=== PATIENT | female | born 1990 | race Caucasian/White ===

== ENCOUNTER → 2017-09-26 | Outpatient (CLI) | payer SELFPAY ==
[~2017-09-26] MED LIST: Cyclobenzaprine5 MG PO; Norco 5-325 Ta1 EACH PO
[2017-09-26 17:58] LABS: BASOPHILS ABSOLUTE AUTO 0.04 K/mm3 (0.00-0.23); BASOPHILS PERCENT AUTO 0 % (0-2); EOSINOPHILS ABSOLUTE AUTO 0.17 K/mm3 (0.00-0.68); EOSINOPHILS PERCENT AUTO 2 % (0-6); Hematocrit 40.8 % (33.0-51.0); Hemoglobin 13.9 g/dL (11.5-16.0); IMMATURE GRAN ABSOLUTE AUTO 0.04 K/mm3 (0.00-0.10); IMMATURE GRAN PERCENT AUTO 0 % (0-1); LYMPHOCYTES PERCENT AUTO 26 % (21-46); MONOCYTES ABSOLUTE AUTO 1.18 K/mm3 (0.16-1.47); MONOCYTES PERCENT AUTO 11 % (4-13); Mean Corpuscular HGB 29.3 pg (26.0-34.0); Mean Corpuscular HGB Conc 34.1 g/dL (31.5-36.5); Mean Corpuscular Volume 86 fL (80-100); Mean Platelet Volume 8.7 fL (9.1-12.4); NEUTROPHILS ABSOLUTE AUTO 6.78 K/mm3 (1.96-9.15); NEUTROPHILS PERCENT AUTO 61 % (41-73); Platelet Count 315 K/mm3 (150-400); RDW Coefficient Variation 13.2 % (11.7-14.2); RDW Standard Deviation 40.9 fL (35.1-46.3); Red Blood Cell Count 4.74 M/mm3 (3.80-5.20); White Blood Cell Count 11.11 K/mm3 (4.00-11.30)
[2017-09-26 18:21] LABS: Alanine Aminotransfer (ALT/SGP 32 U/L (12-78); Albumin, Blood 3.8 g/dL (3.4-5.0); Alk Phos 89 U/L (40-126); Anion Gap 9 mmol/L (6-16); Aspartate Aminotrans (AST/SGOT 20 U/L (12-37); Bilirubin, Total 0.3 mg/dL (0.1-1.0); Blood Urea Nitrogen 15 mg/dL (8-24); Bun/Creatinine Ratio 16.7 (12.0-20.0); CO2, Blood 27 mmol/L (21-32); Chloride, Blood 103 mmol/L (98-108); Globulin, Blood 3.8 g/dL (2.2-4.0); Glomerular Filtration Rate >60 (60-); Glucose, Blood 101 mg/dL (70-99); Sodium, Blood 139 mmol/L (136-145); Thyroid Stimulating Hormone 1.558 uIU/mL (0.360-4.800); Total Protein, Blood 7.6 g/dL (6.4-8.2)
== END ==
LOC: LAB SHORT 17:55 → LAB EV 17:55
PROVIDERS: Physician Assistant Medical
DX: R53.83 Other fatigue (principal)
CPT/HCPCS: 80053; 84443; 85025

== ENCOUNTER → 2018-10-16 | Outpatient (CLI) | payer OTHER ==
[~2018-10-16] MED LIST changes: +PRENATAL TABLE1 EAC2 PO
[2018-10-16 09:28] LABS: Protein, Urine Quantitative 5.7 mg/dL (0.0-11.9)
[2018-10-16 09:57] LABS: Creatinine Urine 59.8 mg/dL (27.00-270.00)
== END | disposition home or self-care (01) ==
LOC: LAB SHORT 08:26 → LAB 08:26
PROVIDERS: Obstetrics & Gynecology
DX: O13.9 Gestational [pregnancy-induced] hypertension without significant proteinuria, unspecified trimester (principal)
CPT/HCPCS: 81050; 82575; 84156

== ENCOUNTER → 2018-11-25 | Outpatient (CLI) | payer OTHER | END | disposition home or self-care (01) | LOC: LAB SHORT 15:48 → LAB 15:48 | DX: Z34.00 Encounter for supervision of normal first pregnancy, unspecified trimester (principal) | CPT/HCPCS: 87081; 87653 ==

== ENCOUNTER 2018-12-06 14:40 | Emergency (ER) | payer OTHER ==
[~2018-12-06] VITALS: Ht 157.5 cm; Wt 141.1 kg
[~2018-12-06 14:40] MED LIST changes: -PRENATAL TABLE1 EAC2 PO
== END 2018-12-06 16:54 | disposition home or self-care (01) ==
LOC: ER 14:40
DX: O9A.213 Injury, poisoning and certain other consequences of external causes complicating pregnancy, third trimester (principal); S39.91XA Unspecified injury of abdomen, initial encounter; Z3A.36 36 weeks gestation of pregnancy; V43.52XA Car driver injured in collision with other type car in traffic accident, initial encounter
CPT/HCPCS: 76816; 99284-25

== ENCOUNTER 2018-12-11 20:03 | Inpatient (IN) | payer OTHER ==
[~2018-12-11] VITALS: Ht 157.5 cm; Wt 138.2 kg
[2018-12-11 22:50] LABS: BASOPHILS ABSOLUTE AUTO 0.02 K/mm3 (0.00-0.23); BASOPHILS PERCENT AUTO 0 % (0-2); EOSINOPHILS ABSOLUTE AUTO 0.04 K/mm3 (0.00-0.68); EOSINOPHILS PERCENT AUTO 0 % (0-6); Hematocrit 35.8 % (33.0-51.0); Hemoglobin 11.6 g/dL (11.5-16.0); IMMATURE GRAN ABSOLUTE AUTO 0.07 K/mm3 (0.00-0.10); IMMATURE GRAN PERCENT AUTO 1 % (0-1); LYMPHOCYTES ABSOLUTE AUTO 1.54 K/mm3 (0.84-5.20); LYMPHOCYTES PERCENT AUTO 12 % (21-46); MONOCYTES ABSOLUTE AUTO 1.04 K/mm3 (0.16-1.47); MONOCYTES PERCENT AUTO 8 % (4-13); Mean Corpuscular HGB 27.2 pg (26.0-34.0); Mean Corpuscular HGB Conc 32.4 g/dL (31.5-36.5); NEUTROPHILS ABSOLUTE AUTO 10.57 K/mm3 (1.96-9.15); NEUTROPHILS PERCENT AUTO 80 % (41-73); Platelet Count 328 K/mm3 (150-400); RDW Coefficient Variation 14.4 % (11.7-14.2); RDW Standard Deviation 43.8 fL (35.1-46.3); Red Blood Cell Count 4.26 M/mm3 (3.80-5.20); White Blood Cell Count 13.28 K/mm3 (4.00-11.30)
[2018-12-11 22:51] LABS: Mean Corpuscular Volume 84 fL (80-100)
[2018-12-11] MEDS ORDERED: PRENATAL TABLE1 EAC2 PO (23:10)
[2018-12-11 23:54] LABS: Alanine Aminotransfer (ALT/SGP 20 U/L (12-78); Albumin, Blood 2.6 g/dL (3.4-5.0); Albumin/Globulin Ratio 0.6 (0.8-1.8); Alk Phos 154 U/L (50-136); Anion Gap 12 mmol/L (6-16); Aspartate Aminotrans (AST/SGOT 25 U/L (12-37); Bilirubin, Total 0.1 mg/dL (0.1-1.0); Blood Urea Nitrogen 6 mg/dL (8-24); Bun/Creatinine Ratio 10.4 (12.0-20.0); CO2, Blood 21 mmol/L (21-32); Calcium, Blood 8.7 mg/dL (8.5-10.1); Chloride, Blood 108 mmol/L (98-108); Creatinine, Blood 0.58 mg/dL (0.40-1.00); Globulin, Blood 4.1 g/dL (2.2-4.0); Glomerular Filtration Rate >60 (60-); Glucose, Blood 137 mg/dL (70-99); Potassium, Blood 3.5 mmol/L (3.5-5.5); Sodium, Blood 141 mmol/L (136-145); Total Protein, Blood 6.7 g/dL (6.4-8.2)
== END 2018-12-12 14:04 | disposition home or self-care (01) | DRG 833 ==
LOC: OBS 20:03 → BC 20:03 → OBS 20:21 → BC 20:26
PROVIDERS: ADMIT Obstetrics & Gynecology
PROC: 3E0P7VZ Introduction of Hormone into Female Reproductive, Via Natural or Artificial Opening (ICD-10-PCS; principal; 2018-12-11)
DX: O13.3 Gestational [pregnancy-induced] hypertension without significant proteinuria, third trimester (principal); Z3A.38 38 weeks gestation of pregnancy
CPT/HCPCS: 36415; 80053; 85025; J0290; J2590; J7120

== ENCOUNTER 2018-12-16 19:59 | Inpatient (IN) | payer OTHER ==
[~2018-12-16] VITALS: Ht 157.5 cm; Wt 143.0 kg
[~2018-12-16 19:59] MED LIST changes: +PRENATAL TABLE1 EAC2 PO
[2018-12-16 20:27] LABS: BASOPHILS ABSOLUTE AUTO 0.01 K/mm3 (0.00-0.23); BASOPHILS PERCENT AUTO 0 % (0-2); EOSINOPHILS ABSOLUTE AUTO 0.07 K/mm3 (0.00-0.68); EOSINOPHILS PERCENT AUTO 1 % (0-6); Hemoglobin 10.6 g/dL (11.5-16.0); IMMATURE GRAN ABSOLUTE AUTO 0.04 K/mm3 (0.00-0.10); IMMATURE GRAN PERCENT AUTO 0 % (0-1); LYMPHOCYTES PERCENT AUTO 15 % (21-46); MONOCYTES ABSOLUTE AUTO 1.22 K/mm3 (0.16-1.47); MONOCYTES PERCENT AUTO 12 % (4-13); Mean Corpuscular HGB 27.3 pg (26.0-34.0); Mean Corpuscular HGB Conc 32.1 g/dL (31.5-36.5); Mean Corpuscular Volume 85 fL (80-100); Mean Platelet Volume 9.8 fL (9.1-12.4); NEUTROPHILS ABSOLUTE AUTO 7.44 K/mm3 (1.96-9.15); NEUTROPHILS PERCENT AUTO 72 % (41-73); Platelet Count 318 K/mm3 (150-400); RDW Coefficient Variation 14.4 % (11.7-14.2); RDW Standard Deviation 43.9 fL (35.1-46.3); Red Blood Cell Count 3.88 M/mm3 (3.80-5.20); White Blood Cell Count 10.28 K/mm3 (4.00-11.30)
[2018-12-20 08:52] LABS: BASOPHILS ABSOLUTE AUTO 0.02 K/mm3 (0.00-0.23); BASOPHILS PERCENT AUTO 0 % (0-2); EOSINOPHILS ABSOLUTE AUTO 0.18 K/mm3 (0.00-0.68); EOSINOPHILS PERCENT AUTO 1 % (0-6); Hematocrit 31.1 % (33.0-51.0); IMMATURE GRAN ABSOLUTE AUTO 0.09 K/mm3 (0.00-0.10); IMMATURE GRAN PERCENT AUTO 1 % (0-1); LYMPHOCYTES ABSOLUTE AUTO 1.92 K/mm3 (0.84-5.20); LYMPHOCYTES PERCENT AUTO 15 % (21-46); MONOCYTES ABSOLUTE AUTO 1.14 K/mm3 (0.16-1.47); MONOCYTES PERCENT AUTO 9 % (4-13); Mean Corpuscular HGB 27.8 pg (26.0-34.0); Mean Corpuscular HGB Conc 32.2 g/dL (31.5-36.5); Mean Corpuscular Volume 86 fL (80-100); Mean Platelet Volume 9.2 fL (9.1-12.4); NEUTROPHILS ABSOLUTE AUTO 9.62 K/mm3 (1.96-9.15); NEUTROPHILS PERCENT AUTO 74 % (41-73); Platelet Count 266 K/mm3 (150-400); RDW Coefficient Variation 14.6 % (11.7-14.2); RDW Standard Deviation 46.1 fL (35.1-46.3); White Blood Cell Count 12.97 K/mm3 (4.00-11.30)
--- NOTE | 2018-12-20 14:19 | NUR ---
CONSULT. HAS A ROOM FULL OF VISITORS SO NO EVALUATION OF BREASTS DONE. BABY IS ASLEEP UNDER PHOTOTHERAPY. INSTRUCT IN POSITIONING TO HELP OBTAIN A DEEPER ASYMETRIC LATCH, FURTHER WIDEN THE LATCH, MASSAGE BREASTS TO HELP WITH RELEASE OF MILK, AND HOW MILK HELPS FLUSH HIS SYSTEM AND RESOLVE THE JAUNDICE ALSO ALONG WITH THE PHOTOTHERAPY. INSTRUCT IN CHANGES TO EXPECT DURING THE FIRST WEEK WITH BABY AND WITH FEEDINGS AND REFERRED TO BF BROCHURE AND BF BOOKLET, FOR PHOTOS AND INFORMATION. QUESTIONS ANSWERED. MOM IS MOTIVATED TO BF AND INTERESTED IN LEARNING.
--- NOTE | 2018-12-20 17:35 | NUR ---
DISCHARGE INSTRUCTIONS, WRITTEN AND VERBAL, GIVEN TO PT AND RAYSHAWN. ANSWERED ALL QUESTIONS AND CONCERNS. IV DISCONTINUED. FOLLOW UP APPOINTMENT SCHEDULED. PT IS DISCHARGED TO [facility] STATUS.
== END 2018-12-20 17:45 | disposition home or self-care (01) | DRG 807 ==
LOC: BC 19:59
PROVIDERS: ADMIT Obstetrics & Gynecology
PROC: 3E0P7VZ Introduction of Hormone into Female Reproductive, Via Natural or Artificial Opening (ICD-10-PCS; 2018-12-16)
PROC: 3E033VJ Introduction of Other Hormone into Peripheral Vein, Percutaneous Approach (ICD-10-PCS; 2018-12-17)
PROC: 10E0XZZ Delivery of Products of Conception, External Approach (ICD-10-PCS; principal; 2018-12-18)
PROC: 10907ZC Drainage of Amniotic Fluid, Therapeutic from Products of Conception, Via Natural or Artificial Opening (ICD-10-PCS; 2018-12-18)
PROC: 3E0R3BZ Introduction of Anesthetic Agent into Spinal Canal, Percutaneous Approach (ICD-10-PCS; 2018-12-18)
DX: O13.4 Gestational [pregnancy-induced] hypertension without significant proteinuria, complicating childbirth (principal); Z37.0 Single live birth; O99.824 Streptococcus B carrier state complicating childbirth; Z3A.38 38 weeks gestation of pregnancy; O61.0 Failed medical induction of labor
CPT/HCPCS: 36415; 51702; 85025; J0290; J1720; J2001; J2590; J3010; J7120

== ENCOUNTER → 2019-06-24 | Outpatient (CLI) | payer OTHER ==
[2019-06-24 18:46] LABS: U Amphetamine Screen Not Detected; U Barbituate Screen Not Detected; U Benzodiazapine Screen Not Detected; U Buprenorphine Screen Not Detected; U Cannabinoids Screen Not Detected; U Cocaine Screen Not Detected; U Methadone Screen Not Detected; U Methamphetamine Screen Not Detected; U Opiates Screen Not Detected; U Oxycodone Screen Not Detected; U Propoxyphene Screen Not Detected
[2019-06-27 01:10] LABS: CHLAMYDIA TRACHOMATIS, NAA Negative (Negative); NEISSERIA GONORRHOEAE, NAA Negative (Negative)
== END ==
LOC: LAB 15:28 → LAB SHORT 15:28
PROVIDERS: Family Medicine
DX: Z34.81 Encounter for supervision of other normal pregnancy, first trimester (principal)
CPT/HCPCS: 87491; 87591

== ENCOUNTER → 2019-09-22 | Outpatient (CLI) | payer OTHER | END | disposition home or self-care (01) | LOC: LAB SHORT 18:06 → LAB 18:06 | DX: Z34.82 Encounter for supervision of other normal pregnancy, second trimester (principal); Z3A.21 21 weeks gestation of pregnancy | CPT/HCPCS: 82950 ==

== ENCOUNTER 2020-01-14 19:52 | Inpatient (IN) | payer OTHER ==
[~2020-01-14] VITALS: Ht 157.5 cm; Wt 145.9 kg
[2020-01-14 20:50] LABS: BASOPHILS ABSOLUTE AUTO 0.02 K/mm3 (0.00-0.23); BASOPHILS PERCENT AUTO 0 % (0-2); EOSINOPHILS ABSOLUTE AUTO 0.08 K/mm3 (0.00-0.68); EOSINOPHILS PERCENT AUTO 1 % (0-6); Hematocrit 36.1 % (33.0-51.0); Hemoglobin 11.6 g/dL (11.5-16.0); IMMATURE GRAN ABSOLUTE AUTO 0.06 K/mm3 (0.00-0.10); IMMATURE GRAN PERCENT AUTO 1 % (0-1); LYMPHOCYTES ABSOLUTE AUTO 1.96 K/mm3 (0.84-5.20); LYMPHOCYTES PERCENT AUTO 18 % (21-46); MONOCYTES ABSOLUTE AUTO 1.01 K/mm3 (0.16-1.47); MONOCYTES PERCENT AUTO 9 % (4-13); Mean Corpuscular HGB 27.1 pg (26.0-34.0); Mean Corpuscular HGB Conc 32.1 g/dL (31.5-36.5); Mean Corpuscular Volume 84 fL (80-100); Mean Platelet Volume 9.2 fL (9.1-12.4); NEUTROPHILS ABSOLUTE AUTO 7.83 K/mm3 (1.96-9.15); NEUTROPHILS PERCENT AUTO 72 % (41-73); Platelet Count 280 K/mm3 (150-400); RDW Coefficient Variation 14.6 % (11.7-14.2); Red Blood Cell Count 4.28 M/mm3 (3.80-5.20); White Blood Cell Count 10.96 K/mm3 (4.00-11.30)
[2020-01-14] MEDS ORDERED: ALBU90OI INH (23:27)
[2020-01-15 09:36] LABS: Alanine Aminotransfer (ALT/SGP 18 U/L (12-78); Albumin, Blood 2.6 g/dL (3.4-5.0); Albumin/Globulin Ratio 0.6 (0.8-1.8); Alk Phos 133 U/L (50-136); Anion Gap 8 mmol/L (6-16); Aspartate Aminotrans (AST/SGOT 14 U/L (12-37); Bilirubin, Total 0.3 mg/dL (0.1-1.0); Blood Urea Nitrogen 7 mg/dL (8-24); Bun/Creatinine Ratio 11.7 (12.0-20.0); CO2, Blood 23 mmol/L (21-32); Calcium, Blood 8.6 mg/dL (8.5-10.1); Chloride, Blood 109 mmol/L (98-108); Glomerular Filtration Rate >60 (60-); Glucose, Blood 139 mg/dL (70-99); Potassium, Blood 3.3 mmol/L (3.5-5.5); Sodium, Blood 140 mmol/L (136-145); Total Protein, Blood 6.6 g/dL (6.4-8.2)
[2020-01-15 09:53] LABS: Creatinine, Urine Random 46.3 mg/dL (27.00-270.00); Protein, Urine Random 6.7 mg/dL (0.0-11.9); Protein/Creat Ratio, Ur Random 0.1
[2020-01-16 05:36] LABS: Hematocrit 33.3 % (33.0-51.0); Hemoglobin 10.5 g/dL (11.5-16.0); Mean Corpuscular HGB 26.6 pg (26.0-34.0); Mean Corpuscular HGB Conc 31.5 g/dL (31.5-36.5); Mean Corpuscular Volume 84 fL (80-100); Platelet Count 263 K/mm3 (150-400); RDW Coefficient Variation 14.4 % (11.7-14.2); RDW Standard Deviation 44.2 fL (35.1-46.3); Red Blood Cell Count 3.95 M/mm3 (3.80-5.20); White Blood Cell Count 12.35 K/mm3 (4.00-11.30)
--- NOTE | 2020-01-16 13:19 | NUR ---
RN ROUNDED TO HELP W/ . EXPERIENCED MOM. STATES FEEDING HAS BEEN GOING "OK". INSTRUCTED PT ON CORRECT LATCHING AND POSITIONING, AND NIPPLE SHAPE AFTER FEEDS. INSTRUCTED ON HAND EXPRESSION AND CORRECT PUMP SETTINGS AND FREQUENCY. PT VERBALIZED UNDERSTANDING. FURTHER SUPPORT OFFERED IF PT DESIRES.
--- NOTE | 2020-01-16 17:34 | NUR ---
D/C HOME IWTH BABY
== END 2020-01-16 17:30 | disposition home or self-care (01) | DRG 807 ==
LOC: OBS 19:52 → BC 20:07
PROVIDERS: ADMIT Family Medicine
PROC: 3E0P7VZ Introduction of Hormone into Female Reproductive, Via Natural or Artificial Opening (ICD-10-PCS; 2020-01-14)
PROC: 10E0XZZ Delivery of Products of Conception, External Approach (ICD-10-PCS; principal; 2020-01-15)
PROC: 3E033VJ Introduction of Other Hormone into Peripheral Vein, Percutaneous Approach (ICD-10-PCS; 2020-01-15)
DX: O13.4 Gestational [pregnancy-induced] hypertension without significant proteinuria, complicating childbirth (principal); Z37.0 Single live birth; O99.214 Obesity complicating childbirth; E66.9 Obesity, unspecified; Z3A.37 37 weeks gestation of pregnancy; O69.81X0 Labor and delivery complicated by cord around neck, without compression, not applicable or unspecified; O69.89X0 Labor and delivery complicated by other cord complications, not applicable or unspecified; O99.824 Streptococcus B carrier state complicating childbirth
CPT/HCPCS: 36415; 80053; 82570; 84156; 85025; 85027; 86850; 86900; 86901; A9270; J0290; J2590; J3010; J7030; J7120

== ENCOUNTER 2021-01-21 19:18 | Inpatient (IN) | payer OTHER ==
[~2021-01-21] VITALS: Ht 157.5 cm; Wt 134.0 kg
[~2021-01-21 19:18] MED LIST changes: +ALBU90OI INH
[2021-01-21 20:29] LABS: BASOPHILS ABSOLUTE AUTO 0.01 K/mm3 (0.00-0.23); BASOPHILS PERCENT AUTO 0 % (0-2); EOSINOPHILS PERCENT AUTO 0 % (0-6); Hematocrit 38.9 % (33.0-51.0); Hemoglobin 12.6 g/dL (11.5-16.0); IMMATURE GRAN ABSOLUTE AUTO 0.01 K/mm3 (0.00-0.10); IMMATURE GRAN PERCENT AUTO 0 % (0-1); LYMPHOCYTES ABSOLUTE AUTO 0.92 K/mm3 (0.84-5.20); LYMPHOCYTES PERCENT AUTO 21 % (21-46); MONOCYTES ABSOLUTE AUTO 0.35 K/mm3 (0.16-1.47); MONOCYTES PERCENT AUTO 8 % (4-13); Mean Corpuscular HGB 28.6 pg (26.0-34.0); Mean Corpuscular HGB Conc 32.4 g/dL (31.5-36.5); Mean Corpuscular Volume 88 fL (80-100); Mean Platelet Volume 8.7 fL (9.1-12.4); NEUTROPHILS ABSOLUTE AUTO 3.16 K/mm3 (1.96-9.15); NEUTROPHILS PERCENT AUTO 71 % (41-73); Platelet Count 209 K/mm3 (150-400); RDW Coefficient Variation 13.5 % (11.7-14.2); RDW Standard Deviation 44.1 fL (35.1-46.3); Red Blood Cell Count 4.41 M/mm3 (3.80-5.20); White Blood Cell Count 4.45 K/mm3 (4.00-11.30)
[2021-01-21 20:49] LABS: Alanine Aminotransfer (ALT/SGP 45 U/L (12-78); Albumin, Blood 3.3 g/dL (3.4-5.0); Albumin/Globulin Ratio 0.8 (0.8-1.8); Alk Phos 69 U/L (50-136); Anion Gap 6 mmol/L (6-16); Aspartate Aminotrans (AST/SGOT 73 U/L (12-37); Bilirubin, Total 0.3 mg/dL (0.1-1.0); Blood Urea Nitrogen 9 mg/dL (8-24); Bun/Creatinine Ratio 10.3 (12.0-20.0); CO2, Blood 26 mmol/L (21-32); Calcium, Blood 7.9 mg/dL (8.5-10.1); Chloride, Blood 105 mmol/L (98-108); Creatinine, Blood 0.87 mg/dL (0.40-1.00); Globulin, Blood 4.3 g/dL (2.2-4.0); Glomerular Filtration Rate >60 (60-); Glucose, Blood 82 mg/dL (70-99); Potassium, Blood 3.2 mmol/L (3.5-5.5); Sodium, Blood 137 mmol/L (136-145); Total Protein, Blood 7.6 g/dL (6.4-8.2); Troponin I <0.015 ng/mL (0.000-0.040)
[2021-01-21 21:22] LABS: SARS-Cov-2 (COVID-19) PCR, MMC POSITIVE (NEGATIVE)
[2021-01-22 04:55] LABS: BASOPHILS PERCENT AUTO 0 % (0-2); EOSINOPHILS PERCENT AUTO 0 % (0-6); IMMATURE GRAN ABSOLUTE AUTO 0.01 K/mm3 (0.00-0.10); IMMATURE GRAN PERCENT AUTO 0 % (0-1); LYMPHOCYTES ABSOLUTE AUTO 0.42 K/mm3 (0.84-5.20); LYMPHOCYTES PERCENT AUTO 12 % (21-46); MONOCYTES ABSOLUTE AUTO 0.13 K/mm3 (0.16-1.47); MONOCYTES PERCENT AUTO 4 % (4-13); Mean Corpuscular HGB 28.6 pg (26.0-34.0); Mean Corpuscular HGB Conc 32.4 g/dL (31.5-36.5); Mean Corpuscular Volume 88 fL (80-100); NEUTROPHILS ABSOLUTE AUTO 2.99 K/mm3 (1.96-9.15); NEUTROPHILS PERCENT AUTO 84 % (41-73); Platelet Count 211 K/mm3 (150-400); RDW Coefficient Variation 13.5 % (11.7-14.2); RDW Standard Deviation 44.5 fL (35.1-46.3); Red Blood Cell Count 4.19 M/mm3 (3.80-5.20); White Blood Cell Count 3.55 K/mm3 (4.00-11.30)
[2021-01-22 05:17] LABS: Alanine Aminotransfer (ALT/SGP 41 U/L (12-78); Albumin, Blood 3.1 g/dL (3.4-5.0); Albumin/Globulin Ratio 0.8 (0.8-1.8); Alk Phos 67 U/L (50-136); Anion Gap 7 mmol/L (6-16); Aspartate Aminotrans (AST/SGOT 75 U/L (12-37); Bilirubin, Total 0.3 mg/dL (0.1-1.0); Blood Urea Nitrogen 8 mg/dL (8-24); Bun/Creatinine Ratio 10.9 (12.0-20.0); CO2, Blood 25 mmol/L (21-32); Calcium, Blood 7.7 mg/dL (8.5-10.1); Chloride, Blood 106 mmol/L (98-108); Creatinine, Blood 0.74 mg/dL (0.40-1.00); Glomerular Filtration Rate >60 (60-); Glucose, Blood 116 mg/dL (70-99); Potassium, Blood 3.8 mmol/L (3.5-5.5); Sodium, Blood 138 mmol/L (136-145); Total Protein, Blood 7.1 g/dL (6.4-8.2)
--- NOTE | 2021-01-22 05:17 | NUR ---
END OF SHIFT REPORT: Pt satting at 80-84 on 5L NC and hyperventilating. Placed on 9LNC and pt is satting at 88-92%. RT notified about getting pt continous O2 monitor. Pt gets very SOB with activity and cough. Strong frequent productive cough and pt reports having blood tinged sputum one time. This nurse asked pt to let nurse see the blood tinged sputum next time she has it. Pt came on floor with multiple non-compatible IV meds with one IV. Pt requesting to not be stuck to obtain second IV. Some meds late for this reason. Pt reports IV potassium burning and the "worst pain she has ever had" This nurse slowed down infusion to 40ml/ hr infusing concurrently with NS thereby making K+ infusions to be late. Pt still menstruating and reporting urge incontinence with cough. Pt resting at this time.
--- NOTE | 2021-01-23 00:48 | NUR ---
CALLED HOSPITALIST INFORMED HIM THAT PT IS REQUESTING BREATHING TX'S REPEATEDLY. RECEIVED ORDER FOR BD PROTOCOL, RT TO EVALUATE. SHE IS NOW ON HIGH FLOW O2 9 LPM, W/NONREBREATHER (12 LPM) OVER THAT WHEN NECESSARY. RT STATES BREATHING TX'S ARE UNNECCESSARY AT THIS TIME. SHE DESATS RAPIDLY WHEN SHE REMOVES HER OXYGEN.
--- NOTE | 2021-01-23 04:05 | NUR ---
SHIFT SUMMARY ADMITTED FOR COVID+. FULL CODE. PT DESATURATING THROUGHOUT SHIFT - WHILE AT REST TO LOW 80'S%. PT NOW ON AIRVO 45 LPM, 90% FiO2. PT ALSO DESATURATES WITH ANY MOVEMENT. TELEMETRY: NSR @ 93 BPM. LOVENOX FOR DVT PREVENTION. PRN COUGH SYRUP IN EMAR. SHE IS TACHYPNEIC. SHE IS ANXIOUS THROUGHOUT SHIFT.
--- NOTE | 2021-01-23 05:24 | NUR ---
PT STATUS PT STATES SHE IS NAUSEOUS NO VOMITING REPORTED. MEDICATION GIVEN PER EMAR
--- NOTE | 2021-01-23 08:08 | NUR ---
PATEINT ANXIOUS, MULTPLE COMPLAINTS, REFUSED REMDISIVIR LAST NIGHT AND REQUESTING THE DOCTOR EXPLAIN THE REMDISIVIR, NURSING BATON TEACHER AWARE OF PATIENTS COMPLAINTS OF PATENT EXAMINER STAFF, MEDICATED THIS AM, PATIENT HAS NOT SLEPT, AIRVO IN PLACE, WILL FOLLOW UP WITH DOCTOR THIS AM
--- NOTE | 2021-01-23 09:21 | NUR ---
DR LUBIN IN WITH PATIENT NOW
--- NOTE | 2021-01-23 17:42 | NUR ---
PATIENT MEDICATED WITH ATIVAN, INCREASED OXYGEN NEEDS 15L NONREBREATHER, AIRVO 60L AT 90%, SATS 85-92%, PAIN WHEN COUGHING, BLOOD TINGLED SPUTUMN, SENT FOR SPUTUMN SAMPLE FOLLOWS INSTRUCTIONS TO BREATH, RESTING, PATIENT REPORTS NOT SLEEPING FOR 2 DAYS, STAND BY ASSIST TO BSC, MAKES NEEDS KNOWN, CALL LIGHT WITH ON REACH
--- NOTE | 2021-01-23 18:16 | NUR ---
ATS 90-95% ON 15L NONREBREATHER, 60L AND 90% AIROVO, PATINET SLEEPING, NO DISTRESS
--- NOTE | 2021-01-23 21:30 | NUR ---
PATIENT CONTINUES TO COUGH VIOLENTLY AND DESATURATE INTO THE 70'S ABOUT EVERY 5-10 MINUTES. LUNG SOUNDS ARE COURSE THROUGHOUT AND DIMINISHED . sHE DID AGREE TO TAKE REMDESVIR THIS EVENING. TEMP EARLIER TODAY WAS RESOLVED WITH TYLENOL AND STRONG COUGHING. tHIS EVENING, TYLENOL GIVEN AGAIN WITH GOOD RELIEF. COUGH IS PRODUCING WHITE SPUTUM MIXED WITH STANDS OF BLOOD. RESP RATE OF 40 AT THIS TIME. RT IN ROOM SUGGESTED BIPAP FOR MORE SUFFICIENT OXYGENATION. CALL PLACED TO EVENING HOSPITALIST. AWAITING RETURN CALL
[2021-01-24] MEDS ORDERED: LEVONOR-ETH ES1 EAC6 PO (01:19)
[2021-01-24 01:41] LABS: Source, Urine Catheter
[2021-01-24 01:43] LABS: Appearance, Urine Clear (Clear); Bilirubin, Urine Neg (Neg); Blood, Urine 3+ (Neg); Color, Urine Yellow (P-Yellow); Glucose Qualitative, Urine Neg (Neg); Ketones, Urine Neg (Neg); Leukocyte Esterase, Urine Neg (Neg); Nitrite, Urine Neg (Neg); Protein, Urine 3+ (Neg); Specific Gravity, Urine 1.015 (1.003-1.022); Urobilinogen, Urine 3+ (Normal); pH, Urine 6.5 (5.0-8.0)
[2021-01-24 01:49] LABS: Red Blood Cells, Urine 0-2 /hpf (0-2)
[2021-01-24 01:50] LABS: Amorphous Light (0-Heavy); Bacteria Few /hpf; Mucus Light (0-Heavy); Squamous Epithelial Cells Few /hpf (Few)
--- NOTE | 2021-01-24 02:00 | NUR ---
ASSUMED PT CARE AT 0030 PT ARRIVED FROM MEDICAL FLOOR D/T INCREASE IN OXYGEN REQUIREMENT. BIPAP 20/14; FIO2 100% WITH RESP RATE 40'S. TIDAL VOLUMES 400-500. PT IS ALERT AND ORIENTED AND ABLE TO MAKE HER NEEDS KNOWN. LUNG SOUNDS ARE CLEAR TO BILATERAL UPPER LOBES AND DIMINSHED TO BILATERAL LOWER LOBES. PT HAS A PRODUCTIVE COUGH. CR CATHETER INSERTED UPON ARRIVAL TO UNIT D/T OXYGEN REQUIREMENTS AND BIPAP DEPENDENCY. PT WAS INCONTINENT WITH SOAKED LINEN UPON ARRIVAL TO UNIT. URINE SENT OFF FOR UA; NEGRA IN COLOR. SINUS TACHYCARDIA WITH HR 100-110'S; BP'S ELEVATED WITH SYSTOLIC 140-150'S. ABDOMEN IS ROUND AND FIRM WITH ACTIVE BTX4. NO EDEMA NOTED. PRECEDEX GTT STARTED AT 0.2MCG/KG/HR WITH GOOD EFFECT. PT IS CURRENTLY RELAXING IN BED. CALL LIGHT IS WITHIN REACH. DR. TORRES UPDATED . PT'S AUNT CALLED WELL FOR AN UPDATE, WHICH WAS RECENTLY GIVEN. SEE SHIFT SUMMARY FOR FURTHER DETAILS.
--- NOTE | 2021-01-24 02:35 | NUR ---
AT 2355, ORDER RECEIVED FROM HOSPITALIST TO TRANSFER TO ICU FOR INTUBATION. UNABLE TO EVEN MAINTAIN SATS IN THE 80'S ON BIPAP AT HIGHEST SETTINGS. RESP RATE VERY HIGH IN MID 40'S TO 50'S. REPORT CALLED TO INCIDENT RESPONSE CONSULTANT AND PATIENT MOVED AT 0010 TO ICU ROOM 10.
[2021-01-24 03:31] LABS: BASOPHILS ABSOLUTE AUTO 0.02 K/mm3 (0.00-0.23); BASOPHILS PERCENT AUTO 0 % (0-2); EOSINOPHILS PERCENT AUTO 0 % (0-6); Hematocrit 37.4 % (33.0-51.0); IMMATURE GRAN PERCENT AUTO 1 % (0-1); LYMPHOCYTES ABSOLUTE AUTO 1.13 K/mm3 (0.84-5.20); LYMPHOCYTES PERCENT AUTO 10 % (21-46); MONOCYTES ABSOLUTE AUTO 1.02 K/mm3 (0.16-1.47); MONOCYTES PERCENT AUTO 9 % (4-13); Mean Corpuscular HGB 28.6 pg (26.0-34.0); Mean Corpuscular HGB Conc 32.1 g/dL (31.5-36.5); Mean Corpuscular Volume 89 fL (80-100); Mean Platelet Volume 8.8 fL (9.1-12.4); NEUTROPHILS ABSOLUTE AUTO 9.23 K/mm3 (1.96-9.15); NEUTROPHILS PERCENT AUTO 80 % (41-73); Platelet Count 278 K/mm3 (150-400); RDW Coefficient Variation 13.3 % (11.7-14.2); RDW Standard Deviation 44.2 fL (35.1-46.3); Red Blood Cell Count 4.19 M/mm3 (3.80-5.20)
[2021-01-24 03:46] LABS: Anion Gap 2 mmol/L (6-16); Blood Urea Nitrogen 9 mg/dL (8-24); CO2, Blood 30 mmol/L (21-32); Chloride, Blood 104 mmol/L (98-108); Creatinine, Blood 0.65 mg/dL (0.40-1.00); Glomerular Filtration Rate >60 (60-); Glucose, Blood 133 mg/dL (70-99); Potassium, Blood 4.4 mmol/L (3.5-5.5); Sodium, Blood 136 mmol/L (136-145)
[2021-01-24 05:41] LABS: PCO2 Arterial 49.5 mmHg (35-45); PO2 Arterial 89.6 mmHg (80-100); pH Blood Arterial 7.38 (7.35-7.45)
--- NOTE | 2021-01-24 05:47 | NUR ---
END OF SHIFT SUMMARY NO SIGNIFICANT CHANGES SINCE LAST ENTRY. BIPAP SETTINGS REMAIN THE SAME WITH RESP RATE IN THE 40'S DESPITE PRECEDEX AT 0.2 MCG/KG/HR AND PT RESTFUL AT THIS TIME. PT NOTED TO PULL AT MASK TWICE THIS SHIFT; THE FIRST TIME IT OCCURRED STAFF WAS OUTSIDE ROOM AND BY THE TIME STAFF WAS ABLE TO ENTER AND PLACE MASK BACK ON, PT HAD DROPPED HER OXYGEN SATURATIONS TO 45%. HOWEVER, PT WAS ABLE TO RECOVER HER OXYGENATION FAIRLY QUICKLY. ATTEMPTED ORAL CARE ON PT; HOWEVER, [place] ADAPTOR DOES NOT FIT THE CURRENT MASK PT IS WEARING; THEREFORE, DID NOT PERFORM ORAL CARES D/T PT'S INABILITY TO MAINTAIN HER OXYGENATION. PT IS CURRENTLY IN NSR WITH HR 70'S. BP'S STABLE, SEE FLOWSHEET. CR CATHETER IS PATENT AND DRAINING DARK, YELLOW URINE. WILL CONTINUE TO MONITOR UNTIL REPORT IS HANDED OFF TO ONCOMING RN.
--- NOTE | 2021-01-24 09:36 | NUR ---
CARE ASSUMED ASSESSMENTS COMPLETED. PT CALM, RESTING IN BED, PRECEDEX 0.2MCG/KG/HR INFUSING. BIPAP 20/14, FIO2 100%, SPO2 HIGH 90'S, DESAT TO 80'S WITH COUGHING SPELLS AND ORAL CARE BUT RECOVERS QUICKLY WITH REST. LS COARSE ON L, DIMINISHED T/O. RR 40'S, PT DIAPHORETIC. EXPECTORATING BROWN/YELLOW SPUTUM WITH BLOOD STREAKS. HR SINUS 80'S, BP STABLE. CR WITH GOOD OUTPUT, CLEAR YELLOW. PPP, NO PERIPHERAL EDEMA NOTED.
--- NOTE | 2021-01-24 19:27 | NUR ---
END OF SHIFT PT TOLERATED BIPAP WELL TODAY WITH PRECEDEX. UNABLE TO UP TITRATE PRECEDEX D/T BRADYCARDIA, PRECEDEX 0.2MCG AT THIS TIME. PT GIVEN ATIVAN ONCE FOR RR 40'S WITHOUT CHANGE. LS WHEEZY, RT CALLED FOR NEB. PT CONTINUES TO EXPECTORATE THICK BROWN/YELLOW SPUTUM STREAKED WITH BLOOD. SPO2 90'S WITH BIPAP 22/17, FIO2 75%, DESAT TO 80'S WITH COUGHING BUT PT QUICKLY RECOVERS AFTER COUGHING SPELLS PASS. BP STABLE, PT ABLE TO REPOSITION HERSELF ONTO HER SIDE, TOELRATES WELL. GOOD URINE OUTPUT TODAY, NO BM. UPDATED.
--- NOTE | 2021-01-24 20:37 | NUR ---
CARE ASSUMPTION PT AT START OF SHIFT W INCREASED SECRETION NEEDING TO BE SUCTIONED OUT OF HER MOUTH W YELLOW-PINK TINKED MUCOUS. PT HAD LARGE LIQUID INCONTINENT STOOL AT START OF THE SHIFT. BIPAP WAS AT 75% FIO2 BUT SWITCHED TO 80% AFTER REPOSITIONING ONTO HER RIGHT SHIDE. RR STILL IN HIGH 30'S AND LOW 40'S. HR IN THE 90'S SO PRECEDEX TURNED UP FROM 0.2 TO 0.4. PT CHANGED AND GIVEN NEW LINENS. PT RESTING COMFORTABLY IN BED. TIS RN SPOKE TO PT'S FATHER AND GAVE HIM AN UPDATE, HE EXPRESSED HIS APPRECIATION FOR THE UPDATE. BP WNL AND TEMP AT 97.0 TEMPORALLY.
[2021-01-25 03:23] LABS: BASOPHILS ABSOLUTE AUTO 0.01 K/mm3 (0.00-0.23); BASOPHILS PERCENT AUTO 0 % (0-2); EOSINOPHILS PERCENT AUTO 0 % (0-6); Hematocrit 34.1 % (33.0-51.0); IMMATURE GRAN ABSOLUTE AUTO 0.12 K/mm3 (0.00-0.10); IMMATURE GRAN PERCENT AUTO 2 % (0-1); LYMPHOCYTES ABSOLUTE AUTO 0.66 K/mm3 (0.84-5.20); LYMPHOCYTES PERCENT AUTO 10 % (21-46); MONOCYTES ABSOLUTE AUTO 0.48 K/mm3 (0.16-1.47); MONOCYTES PERCENT AUTO 7 % (4-13); Mean Corpuscular HGB 28.9 pg (26.0-34.0); Mean Corpuscular HGB Conc 32.3 g/dL (31.5-36.5); Mean Corpuscular Volume 90 fL (80-100); Mean Platelet Volume 8.8 fL (9.1-12.4); NEUTROPHILS ABSOLUTE AUTO 5.46 K/mm3 (1.96-9.15); NEUTROPHILS PERCENT AUTO 81 % (41-73); Platelet Count 257 K/mm3 (150-400); RDW Coefficient Variation 13.2 % (11.7-14.2); RDW Standard Deviation 43.8 fL (35.1-46.3); Red Blood Cell Count 3.81 M/mm3 (3.80-5.20); White Blood Cell Count 6.73 K/mm3 (4.00-11.30)
[2021-01-25 03:41] LABS: Albumin, Blood 2.4 g/dL (3.4-5.0); Anion Gap 5 mmol/L (6-16); Blood Urea Nitrogen 16 mg/dL (8-24); Bun/Creatinine Ratio 25.1 (12.0-20.0); CO2, Blood 31 mmol/L (21-32); Calcium, Blood 8.2 mg/dL (8.5-10.1); Chloride, Blood 107 mmol/L (98-108); Creatinine, Blood 0.64 mg/dL (0.40-1.00); Glomerular Filtration Rate >60 (60-); Glucose, Blood 144 mg/dL (70-99); Phosphorus, Blood 2.6 mg/dL (2.5-4.9); Potassium, Blood 4.5 mmol/L (3.5-5.5); Sodium, Blood 143 mmol/L (136-145)
--- NOTE | 2021-01-25 06:27 | NUR ---
VETERINARY PATHOLOGIST SUMMARY PT IS AXO X 4 W MILD ANXIETY. PT ON PRECEDEX AT 0.4 ALL SHIFT. PT MAINTAINING O2 SATS >90% ON BIPAP W 70% FIO2 FOR MOST OF THE SHIFT W OCCASIONAL DESATTING WHEN BEING REPOSITIONED AND WHILE COUGHING. PT WAS PRONED BUT CONTINUES TO ROLL BACK TO HER SIDE REQUIRING ENCOUREMENT AND ASSISTANCE TO RE-PRONE. HR HAS BEEN SR 60'S TO SB 50'S THIS SHIFT. BP WNL AND STABLE. RR REMAIN VERY HIGH BETWEEN 39-52 THIS SHIFT. PT AFEBRILE W PEAK TEMP 97.0. PT CONTINUES TO COUGH UP PINK-TINGED SPUTUM. PT HAD ONE LARGE LOOSE INCONTINENT BM THIS SHIFT. CR DRAINING 500ML CLEAR YELLOW URINE THIS SHIFT. WILL REPORT TO ONCOMING RN.
--- NOTE | 2021-01-25 18:13 | NUR ---
SHIFT SUMMARY NO ACUTE CHANGES THIS SHIFT. PT HAS REMAINED BIPAP DEPENDENT WITH SETTINGS UNCHANGED AT 22/17, FIO2 70%. PT UNABLE TO TAKE BREAKS FROM BIPAP DUE TO RAPID DESATURATION. PT REMAINS ALERT AND ORIENTED WHEN AWAKE. PT LIGHTLY SEDATED WITH PRECEDEX INFUSING AT 0.4 MCG/KG/MIN. CR REMAINS IN PLACE WITH YELLOW OUTPUT NOTED. PT SHIFTING SELF IN BED INDEPENDENTLY. VITAL SIGNS STABLE. WILL CONTINUE TO MONITOR AND REPORT OFF TO ONCOMING RN.
--- NOTE | 2021-01-25 20:51 | NUR ---
CARE ASSUMPTION PT AWAKE AND USING THE CALL LIGHT TO REQUEST ORAL CARE FOR A DRY MOUTH. PT'S O2 SATS ARE >92% ON BIPAP 22/17 W 75% FIO2 BUT DROP WHEN SHE MOVES OR TALKS. PT'S HR IN SB IN THE 50'S W THE PRECEDEX STILL ON 0.4. BP MILDY ELEVATED W SBP IN THE 140'S. AFEBRILE AT THIS TIME. PLAN DISCUSSED W THE PATIENT TO PRONE FOR THIS SHIFT TO WHICH SHE AGREED. PT HAS CR DRAINING CLEAR YELLOW URINE.
--- NOTE | 2021-01-26 00:32 | NUR ---
UPDATE PT CONTINUES TO ROLL HERSELF FROM PRONE TO HER SIDE AND THEN TO SUPINE WHERE SHE DESATS INTO THE LOW 80'S. EACH TIME THIS RN RUNS INTO THE ROOM AND HELPS HER BACK TO THE PRONE POSITION WHILE GIVING HER 100% FIO2 ON THE BIPAP. PT IS TAKIG LONGER TO RECOVER THIS SHIFT WHEN SHE DESURATES. PT IS CURRENTLY PRONED W BIPAP AND 90% FIO2. RT AND CHARGE NURSE MAGDIEL CONSULTED ON EVENTS.
[2021-01-26 04:27] LABS: BASOPHILS ABSOLUTE AUTO 0.03 K/mm3 (0.00-0.23); BASOPHILS PERCENT AUTO 0 % (0-2); EOSINOPHILS PERCENT AUTO 0 % (0-6); Hematocrit 36.3 % (33.0-51.0); Hemoglobin 11.3 g/dL (11.5-16.0); Mean Corpuscular HGB 28.1 pg (26.0-34.0); Mean Corpuscular HGB Conc 31.1 g/dL (31.5-36.5); Mean Corpuscular Volume 90 fL (80-100); Mean Platelet Volume 9.1 fL (9.1-12.4); Platelet Count 352 K/mm3 (150-400); RDW Coefficient Variation 13.2 % (11.7-14.2); RDW Standard Deviation 44.7 fL (35.1-46.3); Red Blood Cell Count 4.02 M/mm3 (3.80-5.20); White Blood Cell Count 7.28 K/mm3 (4.00-11.30)
[2021-01-26 04:42] LABS: Albumin, Blood 2.4 g/dL (3.4-5.0); Anion Gap 3 mmol/L (6-16); Blood Urea Nitrogen 24 mg/dL (8-24); Bun/Creatinine Ratio 33.5 (12.0-20.0); CO2, Blood 32 mmol/L (21-32); Calcium, Blood 8.2 mg/dL (8.5-10.1); Chloride, Blood 111 mmol/L (98-108); Creatinine, Blood 0.72 mg/dL (0.40-1.00); Glomerular Filtration Rate >60 (60-); Glucose, Blood 157 mg/dL (70-99); Phosphorus, Blood 2.8 mg/dL (2.5-4.9); Potassium, Blood 4.3 mmol/L (3.5-5.5); Sodium, Blood 146 mmol/L (136-145)
[2021-01-26 04:46] LABS: IMMATURE GRAN ABSOLUTE AUTO 0.37 K/mm3 (0.00-0.10); IMMATURE GRAN PERCENT AUTO 5 % (0-1); LYMPHOCYTES ABSOLUTE AUTO 0.65 K/mm3 (0.84-5.20); LYMPHOCYTES PERCENT AUTO 9 % (21-46); MONOCYTES ABSOLUTE AUTO 0.61 K/mm3 (0.16-1.47); MONOCYTES PERCENT AUTO 8 % (4-13); NEUTROPHILS ABSOLUTE AUTO 5.62 K/mm3 (1.96-9.15); NEUTROPHILS PERCENT AUTO 77 % (41-73)
--- NOTE | 2021-01-26 06:10 | NUR ---
NETWORK DIAGNOSTIC SUPPORT SPECIALIST SUMMARY PT IS AXO X4 AND USES THE CALL LIGHT TO MAKE HER NEEDS KNOWN. PT HAS HAD A MORE DIFFICULT NIGHT THIS SHIFT REQUIRING 90-100% FIO2 AT TIMES TO MAINTAIN O2 SATS >90%. PT OXYGENATES VERY WELL PRONE BUT SHE CONTINUES TO ROLL HERSELF FROM PRONE TO HER BACK WHERE SHE DESATS INTO THE LOW 80'S AND TAKES A VERY LONG TIME TO RECOVER ONCE PRONED AGAIN. BIPA IS 22/17 AND CURRENTLY AT 70% FIO2 W PT LYING PRONE. BP MILDLY ELEVATED W SBP IN THE 140'S. RR REMAINS ELEVATED IN THE 40-50'S. PT AFEBRILE W PEAK TEMP OF 96.5. PT'S HR HAS BEEN SR IN THE 50'S WHEN ASLEEP BUT IN THE 80'S WHEN AWAKE. PT'S ACTIVITY TOLERANCE MUCH LOWER THIS SHIFT THAN PREVIOUS NIGHT SHE NOW DESATS WHEN TALKING. NO BM THIS SHIFT. CR PATENT AND DRAING 500ML CLEAR YELOOW URINE THIS SHIFT. PT HAS OCCASIONAL COUGH BUT MUCH LESS SPUTUM PRODUCTION THAN PREVIOUS NIGHT. WILL REPORT TO ONCOMING RN.
--- NOTE | 2021-01-26 10:10 | NUR ---
ASSUMED CARE AT 0700. PT WAS ON LEFT SIDE AT 65% ON BIPAP . AT 1000 PT NEEDED A BREAK FROM PRONE AND SIDE SO SHE IS SUPINE AND FIo2 IS UP TO 85% BECAUSE OF THAT. PRECEDEX STILL AT 0.3, GIVING ATIVAN Q4. UPDATED RAYSHAWN FOR ABOUT 15MIN THIS MORNING. HE IS VERY ANXIOUS.
--- NOTE | 2021-01-26 18:18 | NUR ---
PATIENT HAD A SURPRINGSLY GOOD DAY. UP IN CHAIR FOR SEVERAL HOURS. SB-SR STILL; PRECEDEX MAINTAINED AT 0.3 MCG/KG/MIN. BIPAP NOW AT 22/15 AND 55%. PT NOW ABLE TO TOLERATE SUPINE. A DUEL-LUMED POWER PORT ON THE MATTHEW WAS PLACED. UPDATED IN THE AM FOR 15 MINUTES
--- NOTE | 2021-01-26 21:53 | NUR ---
ASSUMED CARE @1900 PATIENT IS ALERT AND ORIENTED, COOPERATIVE WITH CARE, ANXIOUS WITH PRECEDEX 0.3 MCG/KG/HR. LUNGS DIMINISHED T/O, BIPAP /, 55%, RR 30s-50s. HAD PATIENT PRONE WHICH CONSISTS OF HER LAYING ON HER SIDE, 02 SATS WENT UP FROM 88% TP 95%. ATIVAN GIVEN FOR ANXIETY AND TO HELP WITH PRONING. HR 40s-50s. PT ABLE TO HELP WITH REPOSITIONING. IV NUTRITION INF. BP STABLE. CALL LIGHT IN REACH
[2021-01-27 03:54] LABS: Hematocrit 36.4 % (33.0-51.0); Hemoglobin 11.3 g/dL (11.5-16.0); Mean Corpuscular HGB 28.4 pg (26.0-34.0); Mean Corpuscular Volume 92 fL (80-100); Mean Platelet Volume 8.9 fL (9.1-12.4); Platelet Count 404 K/mm3 (150-400); RDW Coefficient Variation 13.3 % (11.7-14.2); RDW Standard Deviation 45.1 fL (35.1-46.3); Red Blood Cell Count 3.98 M/mm3 (3.80-5.20); White Blood Cell Count 7.11 K/mm3 (4.00-11.30)
[2021-01-27 04:15] LABS: BAND PERCENT MAN 10 % (0-8); BASOPHILS PERCENT MAN 0 % (0-2); EOSINOPHILS PERCENT MAN 0 % (0-6); LYMPHOCYTES ABSOLUTE MAN 0.28 K/mm3 (0.84-5.20); LYMPHOCYTES PERCENT MAN 4 % (21-46); METAMYELOCYTE ABSOLUTE MAN 0.21 K/mm3 (0.00-0.00); METAMYELOCYTE PERCENT MAN 3 % (0-0); MONOCYTES ABSOLUTE MAN 0.56 K/mm3 (0.16-1.47); MONOCYTES PERCENT MAN 8 % (4-13); MYELOCYTE ABSOLUTE MAN 0.21 K/mm3 (0.00-0.00); MYELOCYTE PERCENT MAN 3 % (0-0); NEUTROPHILS ABSOLUTE MAN 5.83 K/mm3 (1.96-9.15); SEG NEUTROPHILS PERCENT MAN 72 % (41-73); TOTAL CELLS COUNTED 100
[2021-01-27 04:18] LABS: Albumin, Blood 2.5 g/dL (3.4-5.0); Anion Gap 4 mmol/L (6-16); Blood Urea Nitrogen 28 mg/dL (8-24); CO2, Blood 31 mmol/L (21-32); Calcium, Blood 8.4 mg/dL (8.5-10.1); Chloride, Blood 111 mmol/L (98-108); Creatinine, Blood 0.74 mg/dL (0.40-1.00); Glomerular Filtration Rate >60 (60-); Glucose, Blood 188 mg/dL (70-99); Magnesium, Blood 2.6 mg/dL (1.6-2.4); Phosphorus, Blood 3.2 mg/dL (2.5-4.9); Potassium, Blood 4.3 mmol/L (3.5-5.5); Sodium, Blood 146 mmol/L (136-145); Triglycerides 286 mg/dL (30-140)
--- NOTE | 2021-01-27 06:25 | NUR ---
SHIFT SUMMARY PATIENT REMAINS ALERT AND ORIENTED, COOPERATIVE WITH CARE. LUNGS DIMINISHED ON BIPAP , FI02 60%. RR IN THE 30s-40s. HR 40s-70s. PATIENT PRONED/LAYED ON SIDE MOST THE NIGHT. UP TO RECLINER THEN BACK TO BED. 02 SATS 89-95%. PRECEDEX INF 0.3 MCG/KG/HR. CLINIMIX INF. MEDICATED FOR ANXIETY ONCE PER EMAR. BP STABLE. WILL REPORT TO NEXT SHIFT.
--- NOTE | 2021-01-27 18:03 | NUR ---
PT OVERALL HAD A GOOD DAY. TOOK TWO BREAKS ON THE HFNC TODAY AT 100% FIO2. NOW BACK IN BED ON BIPAP AT 75% FIO2. UPDATED BOTH AND FATHER.
--- NOTE | 2021-01-27 21:50 | NUR ---
ASSUMED CARE @1900 PATIENT IS ALERT AND ORIENTED. ANXIOUS AT TIMES, PRECEDX INF 0.2 MCG/KG/HR. LUNGS CLEAR IN THE UPPER LOBES AND DIMINISHED IN THE BASES. BIPAP FI02 TITRATED DOWN FROM 70% AT START OF SHIFT TO 60%, 02 SATS 94%. HR 40s-70s. CR DRAINING TO GRAVITY, YELLOW URINE WITH SOME SEDIMENT. PATIENT HAD INCONTINENT BOWEL MOVEMENT AT START OF SHIFT. PATIENT ABLE TO REPOSITION SELF AND AMBULATE WITH MINIMAL ASSISTANCE. IV NUTRITION INF. CALL LIGHT IN REACH.
[2021-01-28 04:19] LABS: BASOPHILS ABSOLUTE AUTO 0.07 K/mm3 (0.00-0.23); BASOPHILS PERCENT AUTO 1 % (0-2); EOSINOPHILS ABSOLUTE AUTO 0.01 K/mm3 (0.00-0.68); EOSINOPHILS PERCENT AUTO 0 % (0-6); Hematocrit 37.5 % (33.0-51.0); Hemoglobin 11.9 g/dL (11.5-16.0); IMMATURE GRAN ABSOLUTE AUTO 0.97 K/mm3 (0.00-0.10); IMMATURE GRAN PERCENT AUTO 10 % (0-1); LYMPHOCYTES ABSOLUTE AUTO 0.86 K/mm3 (0.84-5.20); LYMPHOCYTES PERCENT AUTO 9 % (21-46); MONOCYTES ABSOLUTE AUTO 0.68 K/mm3 (0.16-1.47); MONOCYTES PERCENT AUTO 7 % (4-13); Mean Corpuscular HGB 28.3 pg (26.0-34.0); Mean Corpuscular HGB Conc 31.7 g/dL (31.5-36.5); Mean Corpuscular Volume 89 fL (80-100); Mean Platelet Volume 8.7 fL (9.1-12.4); NEUTROPHILS ABSOLUTE AUTO 7.27 K/mm3 (1.96-9.15); NEUTROPHILS PERCENT AUTO 74 % (41-73); Platelet Count 421 K/mm3 (150-400); RDW Standard Deviation 42.8 fL (35.1-46.3); Red Blood Cell Count 4.21 M/mm3 (3.80-5.20); White Blood Cell Count 9.86 K/mm3 (4.00-11.30)
[2021-01-28 04:35] LABS: Albumin, Blood 2.3 g/dL (3.4-5.0); Anion Gap 6 mmol/L (6-16); Blood Urea Nitrogen 20 mg/dL (8-24); Bun/Creatinine Ratio 30.5 (12.0-20.0); CO2, Blood 29 mmol/L (21-32); Calcium, Blood 8.3 mg/dL (8.5-10.1); Chloride, Blood 106 mmol/L (98-108); Creatinine, Blood 0.66 mg/dL (0.40-1.00); Glomerular Filtration Rate >60 (60-); Glucose, Blood 171 mg/dL (70-99); Magnesium, Blood 2.5 mg/dL (1.6-2.4); Phosphorus, Blood 3.1 mg/dL (2.5-4.9); Potassium, Blood 4.3 mmol/L (3.5-5.5); Sodium, Blood 141 mmol/L (136-145)
[2021-01-28 04:51] LABS: BAND PERCENT MAN 5 % (0-8); BASOPHILS PERCENT MAN 0 % (0-2); EOSINOPHILS PERCENT MAN 0 % (0-6); LYMPHOCYTES ABSOLUTE MAN 0.19 K/mm3 (0.84-5.20); LYMPHOCYTES PERCENT MAN 2 % (21-46); METAMYELOCYTE ABSOLUTE MAN 0.19 K/mm3 (0.00-0.00); METAMYELOCYTE PERCENT MAN 2 % (0-0); MONOCYTES ABSOLUTE MAN 0.29 K/mm3 (0.16-1.47); MONOCYTES PERCENT MAN 3 % (4-13); MYELOCYTE ABSOLUTE MAN 0.09 K/mm3 (0.00-0.00); MYELOCYTE PERCENT MAN 1 % (0-0); NEUTROPHILS ABSOLUTE MAN 9.07 K/mm3 (1.96-9.15); SEG NEUTROPHILS PERCENT MAN 87 % (41-73); TOTAL CELLS COUNTED 100
--- NOTE | 2021-01-28 06:40 | NUR ---
SHIFT SUMMARY PATIENT REMIANS ALERT AND ORIENTED, COOPERATIVE WITH CARE. LUNGS CLEAR IN UPPER LOBES AND DIMINISHED IN THE BASES. BIPAP FI02 55%. RR 30s. PRECEDEX ON STANDBY. NO PRN ATIVAN GIVEN. HR 40s-70s. CR DRAINING NEGRA URINE WITH SEDIMENT. PATIENT HAD TWO LOOSE BROWN BOWEL MOVEMENTS THIS SHIFT, UP TO BEDSIDE COMMODE. PATIENT ABLE TO LAY ON SIDE AND SOMETIMES PRONE MOST THE NIGHT. CLINIMIX INF. CALL LIGHT IN REACH. WILL REPORT TO NEXT SHIFT.
--- NOTE | 2021-01-28 10:52 | NUR ---
PT ALERT AND ORIENTED X4. NEURO WNL. PUPILS EQUAL AND REACTIVE. DENIES NUMBNESS/TINGLING. MOVING ALL EXTREMITIES IN BED. OVERALL WEAKNESS. ON BIPAP THIS AM AT 55% FIO2. SATING MID 90'S. LUNGS SOUNDING DIMINISHED THROUGHOUT. MODERATE COUGH WITH THICK FAIRCHILD SPUTUM. DESCRIBES "LUNG PAIN" WHEN COUGHING. ABLE TO TRANSFER TO HIGH FLOW NASAL CANNULA 60L AT 100%. DESATS MID 80'S WITH EXERTION. TELE SHOWING NORMAL SINUS RHYTHM/SINUS TACH WITH HR 90-110'S. BP SLIGHTLY ELEVATED. NO SIGNS OF EDEMA. PPP. BOWEL TONES PRESENT. SMALL BM THIS AM. DENIES NAUSEA/ABDOMINAL PAIN. ABLE TO SIP WATER AND BROTH THIS AM. DENIES PAIN OVERALL. 1 PERSON STAND BY ASSIST TO BSC AND CHAIR. IN RECLINER AT THIS TIME. ABLE TO TURN SELF IN BED. Q6 BLOOD SUGARS. CLINIMIX INFUSING. CALL LIGHT IN REACH. WILL CONTINUE TO MONITOR.
--- NOTE | 2021-01-28 18:29 | NUR ---
SHIFT SUMMARY: PT REMAINS ALERT AND ORIENTED X4. NEURO REMAINS UNCHANGED. ABLE TO TOLERATE HIGH FLOW NASAL CANNULA AT 60L AND 100% SATING MID-HIGH 90'S FOR 4-5 HOURS DURING DAY SHIFT. AT THIS TIME ON HF NC. WHEN WEARING BIPAP, SETTINGS REMAIN 22/17 AT 55% FIO2. TELE REMAINS UNCHANGED. NSR WITH HR 80-90'S. SINUS TACH WITH MOVMENT AND EXERTION. UP TO CHAIR 2X TODAY. USING BEDSIDE COMMODE WITH 1 PERSON ASSIST. MULTIPLE LOOSE/LIQUID BOWEL MOVEMENTS THIS SHIFT. MEDICATED PER EMAR. PATIENT COMPLAINS OF BILATERAL SHOUDLER AND LEFT ARM SORENESS. MEDICATED WITH TYLENOL. CR CATH IN PLACE DRAINING NEGRA COLORED URINE. PT TALKING WITH FAMILY ON PHONE THROUGHOUT THE DAY. REMAINS NPO. CBG Q6. CALL LIGHT IN REACH. DENIES NEEDS AT THIS TIME. WILL CONTINUE TO MONITOR AND REPORT OFF TO ONCOMING RN.
--- NOTE | 2021-01-28 22:16 | NUR ---
ASSUME CARE. NEURO- A/OX4 CALL LIGHT APPROPRIATE. PERRL 3MM BRISK CV- SR AND STABLE BP. MILD HTN WITH ACTIVITY. RESP- ON HIFLOW. SWITCHED TO BIPAP TO USE BEDSIDE COMMODE. PT LEFT ON BIPAP FOR BED TIME. TOLERATED TRANSITION. SPO2 DROPPED BUT ONLY TO 86% AND RECOVERED QUICKLY. CLEAR T/O. COUGHING AND CLEARING SECRETIONS. BLOWING NOSE. GI. BEDSIDE COMMODE. USED 1 TIME AT SHIFT START. IMODIUM REQUESTED BY PT. ACTIVE BS. - CR IN PLACE AND DRAINING. NEGRA CLEAR SKIN INTACT. 2 PIV IN BILAT AC'S. MATTHEW PG IV.
--- NOTE | 2021-01-29 05:16 | NUR ---
SUMMARY NEURO. PT A/OX4. [place], REPOSITIONS SELF. PERRL 3MM. BRISK. CV. SB-SR. BP STABLE. CAP REFILL LESS THAN 3SEC. WARM DRY PINK. PALPABLE PULSES X 4. RESP. TOLERATING FACE MASK FOR LAST FEW HOURS. WAS ON HIFLOW BUT SPO2 DROPPED TO 85% WHILE SLEEPING. SPO2 STABLE >90% WHILE ON BIPAP. EFFECTIVE COUGH. GI/ NO CHANGES OVER NIGHT. SKIN INTACT.
[2021-01-29 06:47] LABS: Hematocrit 37.7 % (33.0-51.0); Hemoglobin 12.1 g/dL (11.5-16.0); Mean Corpuscular HGB 28.1 pg (26.0-34.0); Mean Corpuscular HGB Conc 32.1 g/dL (31.5-36.5); Mean Corpuscular Volume 88 fL (80-100); Mean Platelet Volume 8.8 fL (9.1-12.4); Platelet Count 443 K/mm3 (150-400); RDW Coefficient Variation 12.8 % (11.7-14.2); RDW Standard Deviation 40.7 fL (35.1-46.3); Red Blood Cell Count 4.31 M/mm3 (3.80-5.20); White Blood Cell Count 11.96 K/mm3 (4.00-11.30)
[2021-01-29 07:06] LABS: Albumin, Blood 2.3 g/dL (3.4-5.0); Anion Gap 5 mmol/L (6-16); Blood Urea Nitrogen 18 mg/dL (8-24); CO2, Blood 29 mmol/L (21-32); Calcium, Blood 8.2 mg/dL (8.5-10.1); Chloride, Blood 105 mmol/L (98-108); Creatinine, Blood 0.58 mg/dL (0.40-1.00); Glomerular Filtration Rate >60 (60-); Glucose, Blood 159 mg/dL (70-99); Magnesium, Blood 2.8 mg/dL (1.6-2.4); Phosphorus, Blood 3.1 mg/dL (2.5-4.9); Potassium, Blood 4.3 mmol/L (3.5-5.5); Sodium, Blood 139 mmol/L (136-145)
[2021-01-29 07:38] LABS: BAND PERCENT MAN 4 % (0-8); BASOPHILS PERCENT MAN 0 % (0-2); EOSINOPHILS PERCENT MAN 0 % (0-6); LYMPHOCYTES ABSOLUTE MAN 0.83 K/mm3 (0.84-5.20); LYMPHOCYTES PERCENT MAN 7 % (21-46); METAMYELOCYTE ABSOLUTE MAN 0.35 K/mm3 (0.00-0.00); METAMYELOCYTE PERCENT MAN 3 % (0-0); MONOCYTES ABSOLUTE MAN 1.07 K/mm3 (0.16-1.47); MONOCYTES PERCENT MAN 9 % (4-13); MYELOCYTE ABSOLUTE MAN 0.47 K/mm3 (0.00-0.00); MYELOCYTE PERCENT MAN 4 % (0-0); SEG NEUTROPHILS PERCENT MAN 73 % (41-73); TOTAL CELLS COUNTED 100
--- NOTE | 2021-01-29 08:43 | NUR ---
AM ASSESSMENT: PT IS A&0X4. PT DENIES PAIN. AFEBRILE-ECG SHOWS SR. SBP TRENDING 150'S. LUNGS DIMINISHED IN BASES. OCCASIONAL PRODUCTIVE COUGH. MAINTAINS SATS>90% ON 60 LITERS/FIO2 100%-AIRVO. NPO DUE TO HIGH FLOW O2/RESPIRATORY DISTRESS. PT REPORTS FREQUENT LOOSE STOOLS AND STATES THAT HER RECTUM AND BUTTOCKS ARE SORE. WILL MED WITH IMMODIUM PRN. PT STATES THAT HER MATTHEW EXTENDED DWELL CATHETER IS UNCOMFORTABLE. MEILSSA LUGO TO REPLACE EXTENDED DWELL CATHETER THIS AM. PT REQUESTS TO HAVE A BATH AND SHAMPOO THIS AM. DARRYN BRAN TO ASSIST WITH BATHING AND SHAMPOO ONCE THE EXTENDED DWELL CATHETER HAS BEEN REPLACED.
--- NOTE | 2021-01-29 12:28 | NUR ---
PT HAS BEEN SITTING UP IN THE CHAIR SINCE HER BATH THIS AM. DESATS TO 88% WITH TALKING, BUT IS MINDFUL OF THIS AND WILL TAKE DEEP BREATHS AND STOP TALKING UNTIL SATS>90%.(STILL ON AIRVO 60 LITERS/FIO2 100%) PT TOLERATING PO FLUIDS WELL- NO SIGNS OF ASPIRATION AT THIS TIME. CLEAR LIQUID ADA DIET ORDERED. CBG 137-NO INSULIN COVERAGE.
--- NOTE | 2021-01-29 16:30 | NUR ---
PT SLEEPING AT THIS TIME. SATS>90% REPORT GIVEN TO MELISSA TANNER IN PREP TO TRANSFER PT TO PCU 15.
--- NOTE | 2021-01-29 17:02 | NUR ---
PT TRANSFERED TO PCU 15 VIA BED. BELONGINGS SENT WITH PT.
--- NOTE | 2021-01-29 17:38 | NUR ---
TRANSFER IN PT TRANSFERED FROM ICU TO PCU 15 AT 1710. PT STOOD UP AT BEDSIDE TO TRANSFER. PT THEN UP TO BSC. PT SITTING UP IN CHAIR AT BEDSIDE AT THIS TIME FOR DINNER. VITAL SIGNS STABLE. PT SWITCHED TO AIRVO 60L, FIO2 80%. PT TOLERATING WELL. POWERGLIDE TO BETHANY C/D/I, SALINE LOCKED. CR IN PLACE WITH YELLOW URINE OUTPUT NOTED. PT ANSWERS QUESTIONS AND FOLLOWS DIRECTIONS APPROPRIATELY. WILL CONTINUE TO MONITOR AND REPORT OFF TO ONCOMING RN.
[2021-01-30 05:44] LABS: Albumin, Blood 2.4 g/dL (3.4-5.0); Anion Gap 5 mmol/L (6-16); Blood Urea Nitrogen 18 mg/dL (8-24); Bun/Creatinine Ratio 29.2 (12.0-20.0); CO2, Blood 27 mmol/L (21-32); Calcium, Blood 8.2 mg/dL (8.5-10.1); Chloride, Blood 106 mmol/L (98-108); Creatinine, Blood 0.62 mg/dL (0.40-1.00); Glomerular Filtration Rate >60 (60-); Glucose, Blood 143 mg/dL (70-99); Phosphorus, Blood 3.2 mg/dL (2.5-4.9); Potassium, Blood 4.4 mmol/L (3.5-5.5); Sodium, Blood 138 mmol/L (136-145)
--- NOTE | 2021-01-30 06:51 | NUR ---
SHIFT SUMMARY PT ALERT AND ORIENTED X4. PLEASANT AND COOPERATIVE TO CARE. ALTERNATED BETWEEN BIPAP AND CIPAP THROUGHOUT SHIFT. 02 SATS OVER 93% WITH OXYGEN ON. BP STABLE. CR REMOVED DURING SHIFT. PT VOIDING ON OWN TO BEDSIDE COMMODE. WILL CONTINUE TO MONITOR UNTIL REPORT GIVEN
--- NOTE | 2021-01-30 11:02 | NUR ---
PT ALERT AND ORIENTED X4. NEURO WNL. DENIES OVERALL PAIN. TELE SHOWING SINUS WITH HR 80-90'S. DENIES CHEST PAIN/PRESSURE. VITAL SIGNS STABLE. STRONG PULSES. NO SIGNS OF EDEMA. THIS AM ON CPAP SETTINGS 10 AND 75% FIO2. TRANSITIONED TO HIGH FLOW NC AT 60L AND 80%. SATING MID 90'S. LUNGS SOUNDING CLEAR AND TOP AND DIM IN BASES. MODERATE COUGH. BOWEL TONES PRESENT. UP TO BSC IND. BOWEL MOVEMENT THIS AM. SKIN OVERALL C/D/I. COCCYX SLIGHTLY RED. PATIENT ABLE TO MOVE AND REPOSITION SELF IN BED. CLEAR LIQUID DIET IN PLACE, TOLERATING WELL. CALL LIGHT IN REACH. UP IN CHAIR AT THIS TIME. WILL CONTINUE TO MONITOR.
--- NOTE | 2021-01-30 14:17 | NUR ---
PT SLEEPING AT THIS TIME. RESPIRATORY IN TO TITRATE 02 HIGH FLOW NASAL CANNULA 50L AND 65% PATIENT SATING LOW 90'S. DESATS WHEN UP TO BSC OR COUGHING. ABLE TO RECOVER WITHIN 3 MIN. PATIENT WANTING TO PUT CPAP BACK ON FOR NAP. CPAP SETTINGS 10 AND 65%. WILL CONTINUE TO MONITOR.
--- NOTE | 2021-01-30 18:40 | NUR ---
SHIFT SUMMARY: NO ACUTE CHANGES. SEE PREVIOUS NOTES. PATIENT IN CHAIR AT THIS TIME. TOLERATING FULL LIQUID DIET. ON HIGH FLOW NC 50L AT 65% SATING LOW 90'S. WILL DESAT WITH MOVEMENT AND COUGHING. RECOVERS WELL. TELE REMAINS UNCHANGED. USING BSC IND. CALL LIGHT IN REACH. DENIES NEEDS AT THIS TIME. WILL REPORT OFF TO ONCOMING RN.
[2021-01-31 04:46] LABS: Hematocrit 39.4 % (33.0-51.0); Hemoglobin 12.6 g/dL (11.5-16.0); Mean Corpuscular HGB 28.6 pg (26.0-34.0); Mean Corpuscular Volume 90 fL (80-100); Platelet Count 365 K/mm3 (150-400); RDW Coefficient Variation 13.2 % (11.7-14.2); RDW Standard Deviation 42.9 fL (35.1-46.3); White Blood Cell Count 9.95 K/mm3 (4.00-11.30)
[2021-01-31 05:04] LABS: Alanine Aminotransfer (ALT/SGP 154 U/L (12-78); Albumin, Blood 2.4 g/dL (3.4-5.0); Albumin/Globulin Ratio 0.6 (0.8-1.8); Alk Phos 63 U/L (50-136); Anion Gap 1 mmol/L (6-16); Aspartate Aminotrans (AST/SGOT 71 U/L (12-37); Bilirubin, Total 0.6 mg/dL (0.1-1.0); Blood Urea Nitrogen 16 mg/dL (8-24); Bun/Creatinine Ratio 21.9 (12.0-20.0); C-REACTIVE PROTEIN, EXT RANGE 0.506 mg/dL (0.000-0.300); CO2, Blood 31 mmol/L (21-32); Calcium, Blood 8.4 mg/dL (8.5-10.1); Chloride, Blood 106 mmol/L (98-108); Creatinine, Blood 0.73 mg/dL (0.40-1.00); Globulin, Blood 3.7 g/dL (2.2-4.0); Glomerular Filtration Rate >60 (60-); Glucose, Blood 122 mg/dL (70-99); Potassium, Blood 4.7 mmol/L (3.5-5.5); Sodium, Blood 138 mmol/L (136-145); Total Protein, Blood 6.1 g/dL (6.4-8.2)
--- NOTE | 2021-01-31 06:26 | NUR ---
SHIFT SUMMARY NO ACUTE EVENTS THIS SHIFT. PT ALERT AND ORIENTED X4. PLEASANT AND COOPERATIVE TO CARE. VERY TALKATIVE. TELE READS 70'S NSR AND O2 SATS MAINTAINING OVER 90% ON 50L AIRVO 45% FIO2. FREQUENT LOOSE STOOLS EARLY IN EVENING, MANAGED PER EMAR. PT VOIDING INDEPENDENTLY WITH BEDSIDE COMMODE. PICC LINE PATENT AND DRAWS BLOOD WHEN ARM IS SIDEWAYS. PT DESATS WHILE TALKING, WITH MASK OFF, AND DURING ACTIVITY. WILL CONTINUE TO MONITOR UNTIL REPORT GIVEN TO DAYSHIFT RN
--- NOTE | 2021-01-31 17:23 | NUR ---
SHIFT SUMMARY PT A/O X4. PT IS ANXIOUS TO GET HOME TO CHILDREN, BECOMES EMOTIONAL AT TIMES AFTER CALLING FAMILY ON HER CELL PHONE. BP STABLE. HR TACHY FOR MAJORITY OF SHIFT WHILE PT WAS AWAKE. PT O2 SATS >93% WHEN AT REST. O2 SATS DROPPED TO 80'S WHEN WORKING WITH OCCUPATIONAL THERAPY AND PHYSICAL THERAPY. PT WAS MOTIVATED TO PARTAKE IN THERAPIES. PT WAS ON CPAP 50L AT MORNING SHIFT CHANGE, SWITCHED TO AIRVO 50L/45% WHEN AWAKE. PT TENDS TO DESAT TO 80'S EVEN WHEN CONVERSING WITH STAFF AT TIMES. PT WAS UP TO BEDSIDE COMMODE A COUPLE OF TIMES, SATS WOULD DROP TO 80'S; SATS WOULD INCREASE AFTER BRIEF REST PERIODS.
--- NOTE | 2021-01-31 21:38 | NUR ---
ASSUMED CARE PT IS ALERT AND ORIENTED X4. PT DENIES CARDIAC RELATED CHEST PAIN/PRESSURE ONLY PAIN FROM COUGH. PT STS NON PRODUCTIVE COUGH. BP STABLE HEART RATE IS TACHY AT 110, ON AIRVO 50L 50%FIO2 WITH SATS >88%. PT REPORTS HAVING CALF TENDERNESS IN LEFT LEG. CALL LIGHT IS WITHIN REACH. WILL CONTINUE TO MONITOR.
--- NOTE | 2021-01-31 22:45 | NUR ---
PT HAS SWITCHED TO CPAP MODE FOR THE NIGHT. WOULD LIKE TO BE LEFT ALONE AFTER MIDNIGHT CARE BECAUSE SHE HAS NOT BEEN ABLE TO SLEEP LATELY. CALL LIGHT IS WITHIN REACH.
--- NOTE | 2021-02-01 06:19 | NUR ---
SHIFT SUMMARY PT IS ALERT AND ORIENTED. HAS BEEN EMOTIONAL AND ANXIOUS AT TIMES. THERE HAVE BEEN NO ACUTE CHANGES T/O THE NIGHT. PT WAS ON AIRVO 50L 50%FIO2 AND THEN ON CPAP FOR SLEEP. PT WAS ABLET TO BE ABOVE 92% WITH VERY FEW DESATS. PT DENIES CARDIAC CHEST PAIN/PRESSURE ONLY CHEST PAIN FROM COUGH. PT REPORTS SLIGHT TENDERNESS IN LEFT CALF. PT IS VERY MOTIVATED THIS MORNING. WAS ABLET TO GET GOOD SLEEP LAST NIGHT. SHE HAS BEEN UP IN CHAIR AND EXERCISING THIS MORNING. CALL LIGHT IS WITHIN REACH.
[2021-02-01 15:38] LABS: BASOPHILS ABSOLUTE AUTO 0.05 K/mm3 (0.00-0.23); BASOPHILS PERCENT AUTO 0 % (0-2); EOSINOPHILS ABSOLUTE AUTO 0.03 K/mm3 (0.00-0.68); EOSINOPHILS PERCENT AUTO 0 % (0-6); Hematocrit 45.7 % (33.0-51.0); Hemoglobin 14.7 g/dL (11.5-16.0); IMMATURE GRAN ABSOLUTE AUTO 0.43 K/mm3 (0.00-0.10); IMMATURE GRAN PERCENT AUTO 3 % (0-1); LYMPHOCYTES ABSOLUTE AUTO 1.12 K/mm3 (0.84-5.20); LYMPHOCYTES PERCENT AUTO 8 % (21-46); MONOCYTES ABSOLUTE AUTO 1.41 K/mm3 (0.16-1.47); MONOCYTES PERCENT AUTO 10 % (4-13); Mean Corpuscular HGB 28.3 pg (26.0-34.0); Mean Corpuscular HGB Conc 32.2 g/dL (31.5-36.5); Mean Corpuscular Volume 88 fL (80-100); Mean Platelet Volume 8.9 fL (9.1-12.4); NEUTROPHILS ABSOLUTE AUTO 11.21 K/mm3 (1.96-9.15); NEUTROPHILS PERCENT AUTO 79 % (41-73); Platelet Count 556 K/mm3 (150-400); RDW Coefficient Variation 13.4 % (11.7-14.2); RDW Standard Deviation 43.3 fL (35.1-46.3); White Blood Cell Count 14.25 K/mm3 (4.00-11.30)
[2021-02-01 15:56] LABS: Alanine Aminotransfer (ALT/SGP 200 U/L (12-78); Albumin/Globulin Ratio 0.7 (0.8-1.8); Alk Phos 77 U/L (50-136); Anion Gap 6 mmol/L (6-16); Aspartate Aminotrans (AST/SGOT 59 U/L (12-37); Bilirubin, Total 0.7 mg/dL (0.1-1.0); Blood Urea Nitrogen 12 mg/dL (8-24); CO2, Blood 28 mmol/L (21-32); Calcium, Blood 8.8 mg/dL (8.5-10.1); Chloride, Blood 102 mmol/L (98-108); Creatinine, Blood 0.75 mg/dL (0.40-1.00); Globulin, Blood 4.3 g/dL (2.2-4.0); Glomerular Filtration Rate >60 (60-); Glucose, Blood 115 mg/dL (70-99); Potassium, Blood 4.3 mmol/L (3.5-5.5); Sodium, Blood 136 mmol/L (136-145); Total Protein, Blood 7.3 g/dL (6.4-8.2)
--- NOTE | 2021-02-01 18:35 | NUR ---
SHIFT SUMMARY PT IS A/O X4 BUT ANXIOUS. BP WERE HIGH T/O SHIFT, DR DELGADO ORDERED A ONETIME AMLODIPINE, GIVEN [ER EMAR. PT HR TACHY T/O SHIFT WITH O2 SATS >92%, SOME SATS DROPPED WHILE WORKING WITH OT. PT HAS BEEN EMOTIONAL WHILE TALKING WITH FRIENDS ON THE PHONE, CAUSING HER HR TO INCREASE TO 120-130'S. PT HAS BEEN MOTIVATED TO DO SOME OF THE PHYSICAL/OCCUPATIONAL THERAPY EXERCISES. PT HAS BEEN UP TO COMMODE MULITIPLE TIMES, TOLERATED WELL. PT STILL ON AIRVO 50L/50%. PT HAS BEEN NPO SINCE 1739 AWAITING AN ABDOMINAL ULTRASOUND ORDERED BY DR DELGADO DUE TO THE INCREASED AST/ALT LEVELS.
--- NOTE | 2021-02-01 18:42 | NUR ---
UPDATE AT 1735, DR DELGADO INFORMED THIS RN THAT SHE HAS ORDERED AN ABDOMINAL ULTRASOUND BECAUSE THE PT HAS ELEVATED ALT/AST LEVELS. PT WAS NOTIFIED AND INFORMED TO BE NPO UNTIL AFTER ULTRASOUND IS COMPLETED, PT WAS RECEPTIVE.
--- NOTE | 2021-02-02 06:14 | NUR ---
shift summary pt rested well through night. alert and oriented, but very anxious. refusing anti anx meds. cooperative with plan of care. tele reading nsr/sinus tach. o2 on airvo 40l/40% - maintaining sats >90%. no c/o pain. vss. voiding to commode with some assistance. call light within reach, bed in lowest position. will continue to monitor.
--- NOTE | 2021-02-02 12:37 | NUR ---
[id number]: SAFE HANDOFF REC'D, ASSUMED CARE OF PT, ASSESSMENT COMPLETED, PT SITTING UP IN CHAIR IN ROOM, STATES THAT SHE FEELS "WIRED" BUT IS FEELING MUCH BETTER FROM A RESPIRATORY STANDPOINT. SHE CONTINUES ON AIRVO WHICH IS BEING WEANED PER RT, DECREASED TO 30L AT 40%, SPO2 DOES DROP WITH ACTIVITY AND TALKING. PT STATES THAT SHE WOULD LIKE TO DECREASE STEROID DOSE SHE FEELS THAT THIS IS CONTRIBUTING TO HER FEELING "WIRED". PT HAS BEEN NOTED TO BE QUITE TALKATIVE, TALKING FAIRLY FAST AND OFTEN ON HER CELL PHONE. PT IN TO WORK WITH PT. 1200: DR DELGADO IN TO SEE PT, TO ADJUST STEROID DOSE WELL ORDER HYDOXYZINE FOR ANXIETY.
[2021-02-02 13:03] LABS: BASOPHILS ABSOLUTE AUTO 0.02 K/mm3 (0.00-0.23); BASOPHILS PERCENT AUTO 0 % (0-2); EOSINOPHILS ABSOLUTE AUTO 0.01 K/mm3 (0.00-0.68); EOSINOPHILS PERCENT AUTO 0 % (0-6); Hematocrit 43.7 % (33.0-51.0); Hemoglobin 14.1 g/dL (11.5-16.0); IMMATURE GRAN PERCENT AUTO 3 % (0-1); LYMPHOCYTES PERCENT AUTO 7 % (21-46); MONOCYTES ABSOLUTE AUTO 0.78 K/mm3 (0.16-1.47); MONOCYTES PERCENT AUTO 6 % (4-13); Mean Corpuscular HGB 28.7 pg (26.0-34.0); Mean Corpuscular HGB Conc 32.3 g/dL (31.5-36.5); Mean Corpuscular Volume 89 fL (80-100); Mean Platelet Volume 8.8 fL (9.1-12.4); NEUTROPHILS PERCENT AUTO 84 % (41-73); Platelet Count 518 K/mm3 (150-400); RDW Coefficient Variation 13.5 % (11.7-14.2); RDW Standard Deviation 43.6 fL (35.1-46.3); Red Blood Cell Count 4.92 M/mm3 (3.80-5.20); White Blood Cell Count 12.21 K/mm3 (4.00-11.30)
[2021-02-02 13:53] LABS: Alanine Aminotransfer (ALT/SGP 169 U/L (12-78); Albumin, Blood 2.9 g/dL (3.4-5.0); Albumin/Globulin Ratio 0.7 (0.8-1.8); Alk Phos 76 U/L (50-136); Anion Gap 5 mmol/L (6-16); Aspartate Aminotrans (AST/SGOT 40 U/L (12-37); Bilirubin, Total 0.5 mg/dL (0.1-1.0); Blood Urea Nitrogen 14 mg/dL (8-24); Bun/Creatinine Ratio 19.9 (12.0-20.0); CO2, Blood 27 mmol/L (21-32); Calcium, Blood 8.6 mg/dL (8.5-10.1); Chloride, Blood 105 mmol/L (98-108); Globulin, Blood 4.1 g/dL (2.2-4.0); Glomerular Filtration Rate >60 (60-); Glucose, Blood 174 mg/dL (70-99); Potassium, Blood 4.2 mmol/L (3.5-5.5); Sodium, Blood 137 mmol/L (136-145)
[2021-02-02 14:22] LABS: Source, Urine Clean Catch
[2021-02-02 15:16] LABS: Appearance, Urine Clear (Clear); Bilirubin, Urine Neg (Neg); Blood, Urine Neg (Neg); Color, Urine Yellow (P-Yellow); Glucose Qualitative, Urine 1+ (Neg); Ketones, Urine Neg (Neg); Leukocyte Esterase, Urine Neg (Neg); Nitrite, Urine Neg (Neg); Protein, Urine Neg (Neg); Urobilinogen, Urine NORM (Normal)
--- NOTE | 2021-02-03 06:26 | NUR ---
SHIFT SUMMARY NO ACUTE EVENTS THIS SHIFT. PT ALERT AND ORIENTED X4. ANXIOUS AT TIMES. SATS OVER 90% ON 6L NC. TELE READS ST 110-120'S WHILE AWAKE AND 60'S-70'S WHILE SLEEPING. DESATS WITH ACTIVITY OR WHILE TALKING. PT INDEPENDENT TO BEDSIDE COMMODE. COUGH MEDICATED PER EMAR. PT COMPLAINS OF INSOMNIA THROUGHOUT PAST WEEK. VISTARIL TAKEN AND PT HAS BEEN SLEEPY SINCE MIDNIGHT. LEFT IN BED SLEEPING WITH CALL ALARM AT SIDE. WILL CONTINUE TO MONITOR UNTIL REPORT GIVEN
--- NOTE | 2021-02-03 10:47 | NUR ---
[id number]: SAFE HANDOFF REC'D, ASSUMED CARE OF PT, ASSESSMENT COMPLETED. PT IS RESTING IN BED, DENIES PAIN, STATES SHE SLEPT FAIRLY WELL FROM MIDNIGHT ON, SHE REMAINS OF 6L O2 VIA NC AND IS DOING WELL WITH THAT, SPO2 IN THE MID 90S AT REST, ALTHOUGH SHE DOES DESAT WITH ACTIVITY TO THE UPPER 80S BUT RECOVERS QUICKLY.
--- NOTE | 2021-02-03 12:50 | NUR ---
[id number]: DR DELGADO IN TO SEE PT AND PLAN IS FOR POSSIBLE DISCHARGE TODAY IF SHE CAN GET QUALIFIED FOR HOME O2. PT IS VERY EXCITED ABOUT THIS. RT IN TO DO HOME O2 QUALIFICATION.
[2021-02-03 12:56] LABS: BASOPHILS ABSOLUTE AUTO 0.03 K/mm3 (0.00-0.23); BASOPHILS PERCENT AUTO 0 % (0-2); EOSINOPHILS ABSOLUTE AUTO 0.01 K/mm3 (0.00-0.68); EOSINOPHILS PERCENT AUTO 0 % (0-6); Hemoglobin 14.5 g/dL (11.5-16.0); IMMATURE GRAN ABSOLUTE AUTO 0.21 K/mm3 (0.00-0.10); IMMATURE GRAN PERCENT AUTO 2 % (0-1); LYMPHOCYTES ABSOLUTE AUTO 1.13 K/mm3 (0.84-5.20); LYMPHOCYTES PERCENT AUTO 10 % (21-46); MONOCYTES ABSOLUTE AUTO 1.05 K/mm3 (0.16-1.47); MONOCYTES PERCENT AUTO 9 % (4-13); Mean Corpuscular HGB 28.4 pg (26.0-34.0); Mean Corpuscular HGB Conc 31.5 g/dL (31.5-36.5); Mean Corpuscular Volume 90 fL (80-100); NEUTROPHILS ABSOLUTE AUTO 8.74 K/mm3 (1.96-9.15); NEUTROPHILS PERCENT AUTO 78 % (41-73); Platelet Count 520 K/mm3 (150-400); RDW Coefficient Variation 13.6 % (11.7-14.2); RDW Standard Deviation 44.9 fL (35.1-46.3); Red Blood Cell Count 5.11 M/mm3 (3.80-5.20); White Blood Cell Count 11.17 K/mm3 (4.00-11.30)
[2021-02-03] MEDS ORDERED: PRED10 PO (13:25)
[2021-02-03 13:26] LABS: Alanine Aminotransfer (ALT/SGP 149 U/L (12-78); Albumin, Blood 3.2 g/dL (3.4-5.0); Albumin/Globulin Ratio 0.8 (0.8-1.8); Alk Phos 73 U/L (50-136); Anion Gap 3 mmol/L (6-16); Aspartate Aminotrans (AST/SGOT 32 U/L (12-37); Bilirubin, Total 0.5 mg/dL (0.1-1.0); Blood Urea Nitrogen 16 mg/dL (8-24); Bun/Creatinine Ratio 23.4 (12.0-20.0); CO2, Blood 31 mmol/L (21-32); Calcium, Blood 8.9 mg/dL (8.5-10.1); Chloride, Blood 104 mmol/L (98-108); Creatinine, Blood 0.69 mg/dL (0.40-1.00); Glomerular Filtration Rate >60 (60-); Glucose, Blood 104 mg/dL (70-99); Potassium, Blood 4.3 mmol/L (3.5-5.5); Sodium, Blood 138 mmol/L (136-145); Total Protein, Blood 7.2 g/dL (6.4-8.2)
[2021-02-03] MEDS ORDERED: PANT20 PO (13:26)
--- NOTE | 2021-02-03 16:58 | NUR ---
PT WITH DC ORDERS TO GO HOME, WILL NEED O2 AND THIS SET UP THROUGH [facility]. DC INSTRUCTIONS REVIEWED WITH PATIENT AND SHE VERBALIZES UNDERSTANDING AND SIGNED DC FORM. ALL BELONGINGS RETURNED, PT DC'S HOME SAFELY.
== END 2021-02-03 16:05 | disposition home or self-care (01) | DRG 871 ==
LOC: ER 19:18 → ICUW 22:16 → PCU 22:16 → MEDS 22:16 → ICUW 01-24 00:32 → PCU 01-29 17:03
PROVIDERS: Family Medicine; Internal Medicine; Internal Medicine Critical Care Medicine; Physician Assistant; Student in an Organized Health Care Education/Training Program; ADMIT Internal Medicine
PROC: XW033E5 Introduction of Remdesivir Anti-infective into Peripheral Vein, Percutaneous Approach, New Technology Group 5 (ICD-10-PCS; principal; 2021-01-21)
PROC: 3E0333Z Introduction of Anti-inflammatory into Peripheral Vein, Percutaneous Approach (ICD-10-PCS; 2021-01-21)
PROC: 5A09557 Assistance with Respiratory Ventilation, Greater than 96 Consecutive Hours, Continuous Positive Airway Pressure (ICD-10-PCS; 2021-01-21)
PROC: 5A0945A Assistance with Respiratory Ventilation, 24-96 Consecutive Hours, High Flow/Velocity Cannula (ICD-10-PCS; 2021-01-29)
DX: A41.89 Other specified sepsis (principal); U07.1 COVID-19; J96.01 Acute respiratory failure with hypoxia; J12.82 Pneumonia due to coronavirus disease 2019; Z68.43 Body mass index [BMI] 50.0-59.9, adult; R65.20 Severe sepsis without septic shock; E87.6 Hypokalemia; A08.4 Viral intestinal infection, unspecified; E66.01 Morbid (severe) obesity due to excess calories; F41.9 Anxiety disorder, unspecified; R79.89 Other specified abnormal findings of blood chemistry; K59.00 Constipation, unspecified; E86.0 Dehydration; J45.909 Unspecified asthma, uncomplicated; Z88.8 Allergy status to other drugs, medicaments and biological substances; Z79.899 Other long term (current) drug therapy
CPT/HCPCS: 36415; 36600; 51702; 71045; 76705; 80048; 80053; 80069; 81001; 81003; 82803; 82947; 83735; 83880; 84478; 84484; 84703; 85025; 85027; 85379; 85651; 86140; 87070; 87205; 93005; 93010; 94640; 94660; 94664; 94761; 94762; 96374; 96375; 97110; 97112; 97116; 97161; 97166; 97530; 97535; 99285-25; A9270; C1751; C9113; J0456; J0696; J1100; J1650; J1885; J2060; J2405; J2550; J2920; J3010; J3475; J3480; J7030; J7050; U0004

== ENCOUNTER → 2022-02-16 | Outpatient (CLI) | payer OTHER ==
[~2022-02-16] MED LIST changes: +LEVONOR-ETH ES1 EAC6 PO; +PANT20 PO; +PRED10 PO
[2022-02-20 18:08] LABS: HPV 16 Negative (Negative); HPV 18 Negative (Negative); HPV OTHER HR TYPES Negative (Negative)
== END | disposition home or self-care (01) ==
LOC: LAB 08:32 → LAB SHORT 08:32
PROVIDERS: Family Medicine
DX: Z12.4 Encounter for screening for malignant neoplasm of cervix (principal)
CPT/HCPCS: 87624; G0123

== ENCOUNTER 2022-08-08 19:06 | Inpatient (IN) | payer OTHER ==
[~2022-08-08] VITALS: Ht 157.5 cm; Wt 154.5 kg
[2022-08-08] MEDS ORDERED: LABE100 PO (20:12)
[2022-08-08] MEDS ORDERED: ASPI81CH PO (20:13)
[2022-08-08] MEDS ORDERED: METF500 PO (20:13)
[2022-08-08] MEDS ORDERED: PRENA1 CHEW TA1.4 MG (20:14)
[2022-08-08 21:13] LABS: BASOPHILS ABSOLUTE AUTO 0.02 K/mm3 (0.00-0.23); BASOPHILS PERCENT AUTO 0 % (0-2); EOSINOPHILS ABSOLUTE AUTO 0.07 K/mm3 (0.00-0.68); EOSINOPHILS PERCENT AUTO 1 % (0-6); Hematocrit 33.5 % (33.0-51.0); Hemoglobin 10.9 g/dL (11.5-16.0); IMMATURE GRAN ABSOLUTE AUTO 0.05 K/mm3 (0.00-0.10); IMMATURE GRAN PERCENT AUTO 1 % (0-1); LYMPHOCYTES PERCENT AUTO 18 % (21-46); MONOCYTES ABSOLUTE AUTO 0.85 K/mm3 (0.16-1.47); MONOCYTES PERCENT AUTO 8 % (4-13); Mean Corpuscular HGB 26.7 pg (26.0-34.0); Mean Corpuscular HGB Conc 32.5 g/dL (31.5-36.5); Mean Corpuscular Volume 82 fL (80-100); Mean Platelet Volume 9.1 fL (9.1-12.4); NEUTROPHILS ABSOLUTE AUTO 7.41 K/mm3 (1.96-9.15); NEUTROPHILS PERCENT AUTO 73 % (41-73); Platelet Count 294 K/mm3 (150-400); RDW Coefficient Variation 14.5 % (11.7-14.2); RDW Standard Deviation 43.4 fL (35.1-46.3); Red Blood Cell Count 4.08 M/mm3 (3.80-5.20)
[2022-08-08 21:32] LABS: Albumin, Blood 2.6 g/dL (3.4-5.0); Albumin/Globulin Ratio 0.7 (0.8-1.8); Bilirubin, Total 0.1 mg/dL (0.1-1.0); Creatinine, Blood 0.64 mg/dL (0.40-1.00); Globulin, Blood 3.8 g/dL (2.2-4.0); Potassium, Blood 3.5 mmol/L (3.5-5.5); Total Protein, Blood 6.4 g/dL (6.4-8.2)
[2022-08-10 06:05] LABS: Hematocrit 31.6 % (33.0-51.0); Hemoglobin 10.3 g/dL (11.5-16.0); Mean Corpuscular HGB 26.8 pg (26.0-34.0); Mean Corpuscular HGB Conc 32.6 g/dL (31.5-36.5); Mean Corpuscular Volume 82 fL (80-100); Mean Platelet Volume 9.1 fL (9.1-12.4); Platelet Count 271 K/mm3 (150-400); RDW Coefficient Variation 14.6 % (11.7-14.2); RDW Standard Deviation 43.4 fL (35.1-46.3); Red Blood Cell Count 3.84 M/mm3 (3.80-5.20)
[2022-08-10 06:47] LABS: Glucose, Blood 161 mg/dL (70-99)
[2022-08-10] MEDS ORDERED: IBUP800 PO (15:20)
[2022-08-10] MEDS ORDERED: ACET500 PO (15:20)
--- NOTE | 2022-08-10 18:07 | NUR ---
DISCHARGE TEACHING COMPLETED, QUESTIONS ANSWERED, PT VERBALIZED UNDERSTANDING INSTRUCTIONS AND FOLLOW UP APPOINTMENTS
--- NOTE | 2022-08-10 19:01 | NUR ---
rept to pm shift Pt is ready to walk out after she finishes dinner
== END 2022-08-10 19:20 | disposition home or self-care (01) | DRG 807 ==
LOC: OBS 19:06 → BC 19:10 → OBS 19:23 → BC 19:26
PROVIDERS: ADMIT Advanced Practice Midwife
PROC: 10E0XZZ Delivery of Products of Conception, External Approach (ICD-10-PCS; principal; 2022-08-09)
PROC: 10907ZC Drainage of Amniotic Fluid, Therapeutic from Products of Conception, Via Natural or Artificial Opening (ICD-10-PCS; 2022-08-09)
PROC: 10H07YZ Insertion of Other Device into Products of Conception, Via Natural or Artificial Opening (ICD-10-PCS; 2022-08-09)
PROC: 0U7C7ZZ Dilation of Cervix, Via Natural or Artificial Opening (ICD-10-PCS; 2022-08-09)
DX: O14.04 Mild to moderate pre-eclampsia, complicating childbirth (principal); Z37.0 Single live birth; O24.425 Gestational diabetes mellitus in childbirth, controlled by oral hypoglycemic drugs; O69.1XX0 Labor and delivery complicated by cord around neck, with compression, not applicable or unspecified; Z3A.37 37 weeks gestation of pregnancy
CPT/HCPCS: 36415; 59070; 59200; 80053; 82947; 85025; 85027; 86850; 86900; 86901; 86923; A9270; C1751; J0690; J1885; J2210; J2590; J3010; J7030; J7120

== ENCOUNTER → 2023-03-07 | Outpatient (CLI) | payer OTHER ==
[~2023-03-07] MED LIST changes: +ACET500 PO; +ASPI81CH PO; +IBUP800 PO; +LABE100 PO; +METF500 PO; +PRENA1 CHEW TA1.4 MG
== END ==
LOC: LAB SHORT 14:58 → LAB 14:58
DX: Z80.41 Family history of malignant neoplasm of ovary (principal)
CPT/HCPCS: 86304

== ENCOUNTER → 2024-09-12 | Outpatient (CLI) | payer OTHER ==
[2024-09-13 09:50] LABS: Stool Occult Bld Immuno 1 Negative (NEGATIVE)
[2024-09-13 11:02] LABS: Adenovirus F 40/41 Not Detected (NOT DETECT); Astrovirus Not Detected (NOT DETECT); Campylobacter Sp Not Detected (NOT DETECT); Cryptosporidium Not Detected (NOT DETECT); Cyclospora Cayetanensis Not Detected (NOT DETECT); E. Coli O157 Not Detected (NOT DETECT); Entamoeba Histolytica Not Detected (NOT DETECT); Enteroaggregative E. coli-EAEC Not Detected (NOT DETECT); Enteropathogenic E. coli-EPEC Not Detected (NOT DETECT); Enterotoxigenic E. coli-ETEC Not Detected (NOT DETECT); Giardia Lamblia Not Detected (NOT DETECT); Norovirus GI/GII Not Detected (NOT DETECT); Plesiomonas Shigelloides Not Detected (NOT DETECT); Rotavirus A Not Detected (NOT DETECT); Salmonella Sp Not Detected (NOT DETECT); Sapovirus Not Detected (NOT DETECT); Shiga Toxin-prod E. coli-STEC Not Detected (NOT DETECT); Shigella/Enteroin E. coli-EIEC Not Detected (NOT DETECT); Vibrio Cholerae Not Detected (NOT DETECT); Vibrio Sp Not Detected (NOT DETECT); Yersinia Enterocolitica Not Detected (NOT DETECT)
[2024-09-17 18:59] LABS: PANCREATIC ELASTASE,FECAL 605 ug/g (>=100)
[2024-09-17 19:06] LABS: CALPROTECTIN,FECAL 6 ug/g (<=49)
== END ==
LOC: LAB SHORT 14:00 → LAB 14:00
PROVIDERS: Family Medicine
DX: K52.9 Noninfective gastroenteritis and colitis, unspecified (principal)
CPT/HCPCS: 82274; 82653; 83993; 87507; 89055

== ENCOUNTER 2025-03-09 07:12 | Day surgery (SDC) | payer OTHER ==
[~2025-03-09] VITALS: Ht 157.5 cm; Wt 133.3 kg
[~2025-03-09 07:12] MED LIST changes: +NS 500 ML IV ONE
[2025-03-09] MEDS ORDERED: CeFAZolin Sodium 3,000 MG VIAL ONE (07:36)
[2025-03-09] MEDS ORDERED: BREO ELLIPTA 21 EAC1 IH (07:42)
[2025-03-09] MEDS ORDERED: DULO60 PO (07:43)
[2025-03-09] MEDS ORDERED: BUSPIRONE HCL10 M6 PO (07:43)
[2025-03-09] MEDS ORDERED: Lisinopril10 MG PO (07:45)
[2025-03-09] MEDS ORDERED: ESTRADIOL 0.5MG (07:45)
[2025-03-09] MEDS ORDERED: Vitamin D1000 UNI1 PO (07:47)
[2025-03-09] MEDS ORDERED: Hair, Skin & N1 EACH PO (07:47)
[2025-03-09] MEDS ORDERED: FentaNYL Citrate 50 MCG/ML 2 ML Injection ONE (07:53)
[2025-03-09] MEDS ORDERED: Midazolam HCl 1MG / ML 2ML Vial ONE (07:53)
[2025-03-09] MEDS ORDERED: NS 500 ML IV ONE (08:09)
--- NOTE | 2025-03-09 08:11 | NUR ---
03/09/25 0811 Sugey Brown TIME OUT PERFORMED AT BEDSIDE WITH DR GARDNER IMMEDIATELY PRIOR TO INJECTION OF 6ML OF SOLUTION CONSISTING OF 9ML 1% LIDOCAINE W/EPI [id number] AND 1ML 8.4% SODIUM BICARBONATE. PATIENT TOLERATED PROCEDURE WELL.
[2025-03-09 09:13] VITALS: BP 142/82
== END 2025-03-09 09:05 | disposition home or self-care (01) ==
LOC: ORSCSDS 07:12
PROVIDERS: Orthopaedic Surgery
PROC: 01N54ZZ Release Median Nerve, Percutaneous Endoscopic Approach (ICD-10-PCS; principal; 2025-03-09 08:30)
DX: G56.03 Carpal tunnel syndrome, bilateral upper limbs (principal); I10 Essential (primary) hypertension; J45.909 Unspecified asthma, uncomplicated; E66.9 Obesity, unspecified; Z68.43 Body mass index [BMI] 50.0-59.9, adult; Z79.899 Other long term (current) drug therapy
CPT/HCPCS: J0690; J2250; J3010; J7040

== ENCOUNTER 2025-04-13 07:20 | Day surgery (SDC) | payer OTHER ==
[~2025-04-13] VITALS: Ht 160 cm; Wt 135.8 kg
[~2025-04-13 07:20] MED LIST changes: +BREO ELLIPTA 21 EAC1 IH; +BREO ELLIPTA 21 EAC1 INH; +BUSPIRONE HCL10 M6 PO; +Cymbalta20 MG PO; +DULO60 PO; +Estradiol0.5 MG PO; +Hair, Skin & N1 EACH PO; +Lidocaine 1%-Epineph 1:100000 20 ML MDV ONE; +Lisinopril10 MG PO; +Vitamin D1000 UNI1 PO
[2025-04-13] MEDS ORDERED: CeFAZolin Sodium 3,000 MG VIAL ONE (07:33)
[2025-04-13] MEDS ORDERED: MELO7.5 PO (07:39)
[2025-04-13] MEDS ORDERED: NS 500 ML IV ONE (07:52)
[2025-04-13 08:45] VITALS: BP 120/73
--- NOTE | 2025-04-13 09:09 | NUR ---
04/13/25 0909 Jerri Ames PT PLEASANT AND COOPERATIVE WITH CARE PROVIDED. PT TALKATIVE. A&O x4, ABLE TO MAKE NEEDS KNOWN. PT DENIED ANY PAIN, NO NAUSEA. PT STEADY GETTING OUT OF BED AND UP TO THE CHAIR. PT TOLERATED FLUIDS WELL. PT IS PLANNING ON GETTING SOMEHTING TO EAT AND DRINK ON HER WAY HOME. PT ASSISTED TO WC, AND OUT TO HER PRIVATE VEHICLE. ALL QUESTIONS ANSWERED AND CONCERNS ADDRESSED.
[2025-04-15] MEDS ORDERED: ESCI20 PO (08:43)
[2025-04-15] MEDS ORDERED: LOPE2C PO (08:46)
== END 2025-04-13 09:05 | disposition home or self-care (01) ==
LOC: ORSCSDS 07:20
PROVIDERS: Orthopaedic Surgery
PROC: 01N54ZZ Release Median Nerve, Percutaneous Endoscopic Approach (ICD-10-PCS; principal; 2025-04-13 08:30)
DX: G56.01 Carpal tunnel syndrome, right upper limb (principal); I10 Essential (primary) hypertension; G47.33 Obstructive sleep apnea (adult) (pediatric); J45.909 Unspecified asthma, uncomplicated; E66.9 Obesity, unspecified; Z68.43 Body mass index [BMI] 50.0-59.9, adult; Z79.899 Other long term (current) drug therapy
CPT/HCPCS: J0690; J2704; J7040

== ENCOUNTER 2025-04-17 11:11 | Day surgery (SDC) | payer OTHER ==
[~2025-04-17] VITALS: Ht 157.5 cm; Wt 133.3 kg
--- NOTE | 2025-04-17 08:27 | NUR ---
04/17/25 [address] DELEON, SEE ANESTHESIA RECORDS.
[~2025-04-17 11:11] MED LIST changes: +ESCI20 PO; +LOPE2C PO; -Lidocaine 1%-Epineph 1:100000 20 ML MDV ONE; +MELO7.5 PO; -NS 500 ML IV ONE
[2025-04-17 13:06] VITALS: BP 135/72
--- NOTE | 2025-04-17 13:28 | NUR ---
PRE PRECEDURE NOTE PT A&OX4, ANXIOUS, BREATHING RA, VSS. Ambulatory in Day Surgery Patient confirms NPO status and agrees with scheduled surgery. Pre-Op teaching done. Pt verbalizes understanding. Patient States Post-Procedure ride home has been arranged.
[2025-04-17 13:50] VITALS: BP 109/65
[2025-04-17 14:00] VITALS: BP 114/77
== END 2025-04-17 14:13 | disposition home or self-care (01) ==
LOC: ORSCMMR 11:11 → ORD 13:00 → ORSCMMR 14:13
PROVIDERS: Internal Medicine Gastroenterology
PROC: 0DBE8ZX Excision of Large Intestine, Via Natural or Artificial Opening Endoscopic, Diagnostic (ICD-10-PCS; principal; 2025-04-17 13:00)
PROC: 0DJ08ZZ Inspection of Upper Intestinal Tract, Via Natural or Artificial Opening Endoscopic (ICD-10-PCS; principal; 2025-04-17 13:00)
DX: K21.9 Gastro-esophageal reflux disease without esophagitis (principal); R19.7 Diarrhea, unspecified; J45.909 Unspecified asthma, uncomplicated; I10 Essential (primary) hypertension; Z79.899 Other long term (current) drug therapy; E66.9 Obesity, unspecified
CPT/HCPCS: J2704; J7120